=== PATIENT | female | born 1995 | race Caucasian/White ===

== ENCOUNTER 2020-06-22 23:23 | Inpatient (IN) | payer BC ==
[2020-06-22] MEDS ORDERED: ACETAMINOPHEN TAB 500 MG TAB PO STA (23:41)
[2020-06-22] MEDS ORDERED: ALBUTEROL HFA INHALER INHALATION STA (23:41)
[2020-06-22] MEDS ORDERED: SODIUM CHLORIDE 0.9% 500 ML 500 ML IV STA (23:42)
[2020-06-22] MEDS ORDERED: IBUPROFEN 800 MG TAB PO STA (23:42)
[2020-06-22] MEDS ORDERED: SODIUM CHLORIDE 0.9% 1,000 ML IV STA ×2 (23:42)
--- NOTE | 2020-06-23 | XR ---
EXAMINATION TYPE: XR chest 1V portable DATE OF EXAM: 06/22/2020 COMPARISON: NONE HISTORY: Short of breath. . TECHNIQUE: Single view FINDINGS: Heart and mediastinum are normal. There is possible small infiltrate in the right lower lob e. There is slight elevated right diaphragm. Left lung is fairly clear. There is no heart failure. Th ere are no hilar masses. Bony thorax is intact. IMPRESSION: Minimal infiltrate right lower lobe. Normal heart.
--- NOTE | 2020-06-23 00:06 | ED ---
Fever HPI - General Chief Complaint: Fever Stated Complaint: +COVID, fever, dehydrated Time Seen by Provider: 06/22/20 23:32 Source: patient, RN notes reviewed, old records reviewed Mode of arrival: ambulatory Limitations: no limitations - History of Present Illness Initial Comments: This is a 24-year-old female DF for evaluation patient Dese for evaluation regards to fever with known history of coronavirus. Patient feels significantly short of breath with diffuse body aches and pains. No significant medical history. Patient otherwise is complaining of headache. Patient is also seen is not really catch her breath denies chance of . MD Complaint: fever, weakness -: days(s) Temperature Source: subjective Context: sick contacts Associated Symptoms: chills, nausea Treatments Prior to Arrival: Acetaminophen, Ibuprofen - Related Data Home Medications Medication Instructions Recorded Confirmed Acetaminophen Tab [Tylenol] 500 mg PO Q4-6H PRN 06/24/20 06/24/20 Pnv No.95/Ferrous Fum/Folic AC 1 tab PO DAILY 06/24/20 06/24/20 [ Multivitamin Tablet] Previous Rx's Medication Instructions Recorded Zinc Sulfate [Orazinc] 220 mg PO DAILY #30 capsule 06/23/20 Albuterol Sulfate [Proair Hfa] 1 - 2 puff INHALATION Q6HR PRN #1 06/24/20 inhaler Famotidine [Pepcid] 20 mg PO BID #20 tablet 06/24/20 Allergies Allergy/AdvReac Type Severity Reaction Status Date / Time No Known Allergies Allergy Verified 06/24/20 21:20 Review of Systems ROS Statement: Those systems with pertinent positive or pertinent negative responses have been documented in the HPI. ROS Other: All systems not noted in ROS Statement are negative. Past Medical History Past Medical History: No Reported History History of Any Multi-Drug Resistant Organisms: None Reported Past Surgical History: Adenoidectomy, Tonsillectomy Past Psychological History: ADD/ADHD Smoking Status: Never smoker Past Alcohol Use History: None Reported Past Drug Use History: None Reported General Exam Limitations: no limitations General appearance: alert, in no apparent distress Head exam: Present: atraumatic, normocephalic, normal inspection Eye exam: Present: normal appearance, PERRL, EOMI. Absent: scleral icterus, conjunctival injection, periorbital swelling ENT exam: Present: normal exam, mucous membranes moist Neck exam: Present: normal inspection. Absent: tenderness, meningismus, lymphadenopathy Respiratory exam: Present: normal lung sounds bilaterally. Absent: respiratory distress, wheezes, rales, rhonchi, stridor Cardiovascular Exam: Present: regular rate, normal rhythm, normal heart sounds. Absent: systolic murmur, diastolic murmur, rubs, gallop, clicks GI/Abdominal exam: Present: soft, normal bowel sounds. Absent: distended, tenderness, guarding, rebound, rigid Extremities exam: Present: normal inspection, full ROM, normal capillary refill. Absent: tenderness, pedal edema, joint swelling, calf tenderness Back exam: Present: normal inspection Neurological exam: Present: alert, oriented X3, CN II-XII intact Psychiatric exam: Present: normal affect, normal mood Skin exam: Present: warm, dry, intact, normal color. Absent: rash Course Vital Signs 06/22/20 06/23/20 06/23/20 23:26 00:10 01:27 Temperature 99.0 F Pulse Rate 123 H 98 Pulse Rate [ 120 H [employer] ] Respiratory 22 20 18 Rate Blood Pressure 117/82 100/60 O2 Sat by Pulse 98 98 Oximetry - Reevaluation(s) Reevaluation #1: Medical record is reviewed Patient symptoms are improved here in the ER Patient informed results and questions have been answered Patient does not feel couple discharged home still feel short of breath and weak Medical Decision Making - Medical Decision Making 24 female DF for evaluation patient is positive for coronavirus. Patient does not feel well will be admitted for coronavirus and evaluation and treatment - Lab Data Result diagrams: 06/23/20 00:15 06/23/20 00:15 Lab Results 06/23/20 06/23/20 06/23/20 Range/Units 00:15 00:15 00:15 WBC 4.9 (3.8-10.6) k/uL RBC 4.02 (3.80-5.40) m/uL Hgb 12.2 (11.4-16.0) gm/dL Hct 34.2 (34.0-46.0) % MCV 85.0 (80.0-100.0) fL MCH 30.4 (25.0-35.0) pg MCHC 35.8 (31.0-37.0) g/dL RDW 12.9 (11.5-15.5) % Plt Count 161 (150-450) k/uL MPV 7.1 Neutrophils % 81 % Lymphocytes % 13 % Monocytes % 4 % Eosinophils % 0 % Basophils % 0 % Neutrophils # 3.9 (1.3-7.7) k/uL Lymphocytes # 0.6 L (1.0-4.8) k/uL Monocytes # 0.2 (0-1.0) k/uL Eosinophils # 0.0 (0-0.7) k/uL Basophils # 0.0 (0-0.2) k/uL PT 10.2 (9.0-12.0) sec INR 0.9 (<1.2) APTT 27.1 (22.0-30.0) sec D-Dimer 0.97 H (<0.60) mg/L FEU Sodium 131 L (137-145) mmol/L Potassium 3.8 (3.5-5.1) mmol/L Chloride 102 (98-107) mmol/L Carbon Dioxide 21 L (22-30) mmol/L Anion Gap 8 mmol/L BUN 8 (7-17) mg/dL Creatinine 0.46 L (0.52-1.04) mg/dL Est GFR (CKD-EPI)AfAm >90 (>60 ml/min/1.73 sqM) Est GFR (CKD-EPI)NonAf >90 (>60 ml/min/1.73 sqM) Glucose 91 (74-99) mg/dL Plasma Lactic Acid Chavo (0.7-2.0) mmol/L Calcium 8.9 (8.4-10.2) mg/dL Magnesium 1.6 (1.6-2.3) mg/dL Total Bilirubin 0.5 (0.2-1.3) mg/dL AST 70 H (14-36) U/L ALT 96 H (4-34) U/L Alkaline Phosphatase 96 (38-126) U/L Lactate Dehydrogenase 431 (313-618) U/L C-Reactive Protein 36.9 H (<10.0) mg/L Total Protein 6.0 L (6.3-8.2) g/dL Albumin 3.6 (3.5-5.0) g/dL 06/23/20 Range/Units 00:15 WBC (3.8-10.6) k/uL RBC (3.80-5.40) m/uL Hgb (11.4-16.0) gm/dL Hct (34.0-46.0) % MCV (80.0-100.0) fL MCH (25.0-35.0) pg MCHC (31.0-37.0) g/dL RDW (11.5-15.5) % Plt Count (150-450) k/uL MPV Neutrophils % % Lymphocytes % % Monocytes % % Eosinophils % % Basophils % % Neutrophils # (1.3-7.7) k/uL Lymphocytes # (1.0-4.8) k/uL Monocytes # (0-1.0) k/uL Eosinophils # (0-0.7) k/uL Basophils # (0-0.2) k/uL PT (9.0-12.0) sec INR (<1.2) APTT (22.0-30.0) sec D-Dimer (<0.60) mg/L FEU Sodium (137-145) mmol/L Potassium (3.5-5.1) mmol/L Chloride (98-107) mmol/L Carbon Dioxide (22-30) mmol/L Anion Gap mmol/L BUN (7-17) mg/dL Creatinine (0.52-1.04) mg/dL Est GFR (CKD-EPI)AfAm (>60 ml/min/1.73 sqM) Est GFR (CKD-EPI)NonAf (>60 ml/min/1.73 sqM) Glucose (74-99) mg/dL Plasma Lactic Acid Chavo 0.6 L (0.7-2.0) mmol/L Calcium (8.4-10.2) mg/dL Magnesium (1.6-2.3) mg/dL Total Bilirubin (0.2-1.3) mg/dL AST (14-36) U/L ALT (4-34) U/L Alkaline Phosphatase (38-126) U/L Lactate Dehydrogenase (313-618) U/L C-Reactive Protein (<10.0) mg/L Total Protein (6.3-8.2) g/dL Albumin (3.5-5.0) g/dL - EKG Data -: EKG Interpreted by Me (EKG shows sinus tachycardia 117 IN 150 QRS 76 QTC 438) - Radiology Data Radiology results: report reviewed (Chest x-ray does show infiltrate), image reviewed Disposition Clinical Impression: Viral infection, Fever, Coronavirus infection, Pneumonia due to COVID-19 virus Disposition: ADMITTED IP TO THIS HOSP Condition: Good Is patient prescribed a controlled substance at d/c from ED?: No
[2020-06-23 00:38] LABS: Basophils % (A) 0 %; Eosinophils % (A) 0 %; HCT 34.2 % (34.0-46.0); HGB 12.2 gm/dL (11.4-16.0); Lymphocytes # (A) 0.6 k/uL (1.0-4.8); Lymphocytes % (A) 13 %; MCH 30.4 pg (25.0-35.0); MCHC 35.8 g/dL (31.0-37.0); Mean Platelet Volume 7.1; Monocytes # (A) 0.2 k/uL (0-1.0); Monocytes % (A) 4 %; Neutrophils # (A) 3.9 k/uL (1.3-7.7); Neutrophils % (A) 81 %; Platelet Count 161 k/uL (150-450); RBC 4.02 m/uL (3.80-5.40); RDW 12.9 % (11.5-15.5); WBC 4.9 k/uL (3.8-10.6)
[2020-06-23 00:47] LABS: INR 0.9 (<1.2); Partial Thromboplastin Time 27.1 sec (22.0-30.0); Prothrombin Time 10.2 sec (9.0-12.0)
[2020-06-23 00:49] LABS: ALT 96 U/L (4-34); AST 70 U/L (14-36); African American GFR (CKD) >90 (>60 ml/min/1.73 sqM); Albumin 3.6 g/dL (3.5-5.0); Alkaline Phosphatase 96 U/L (38-126); Anion Gap 8 mmol/L; Blood Urea Nitrogen 8 mg/dL (7-17); C Reactive Protein 36.9 mg/L (<10.0); Calcium 8.9 mg/dL (8.4-10.2); Carbon Dioxide 21 mmol/L (22-30); Chloride 102 mmol/L (98-107); Glucose 91 mg/dL (74-99); LDH 431 U/L (313-618); Magnesium 1.6 mg/dL (1.6-2.3); Non-African American GFR(CKD) >90 (>60 ml/min/1.73 sqM); Potassium 3.8 mmol/L (3.5-5.1); Sodium 131 mmol/L (137-145); Total Bilirubin 0.5 mg/dL (0.2-1.3)
[2020-06-23 00:58] LABS: D-Dimer 0.97 mg/L FEU (<0.60)
[2020-06-23] MEDS ORDERED: AZITHROMYCIN 500 MG in SODIUM CHLORIDE 0.9% 250 ML IVPB STA (00:58)
[2020-06-23] MEDS ORDERED: PNEUMONIA PROTOCOL UTILIZED 1 EACH MISC PO PRN (00:58)
[2020-06-23] MEDS ORDERED: ACETAMINOPHEN TAB 500 MG TAB PO PRN (05:34)
[2020-06-23] MEDS: ALBUTEROL HFA INHALER INHALATION PRN ×2 (07:44→16:32)
--- NOTE | 2020-06-23 13:34 | P.HPIM ---
History of Present Illness Patient is a very pleasant 23-year-old woman came in with complaints of generalized body aches fever chills. Patient appears tired and weak. Patient's symptoms started on Wednesday was diagnosed with Covid. Patient is bit h yponatremic and the dry and dehydrated because of which patient was admitted given IV fluids. Patient will be discharged today. Patient is not hypoxic still having fevers. As patient is not hypoxic patient probably will not benefit from systemic steroids. Patient received IV fluids overnight. Chest x- ray showed mild infiltrate in the right lower lobe. Review of Systems REVIEW OF SYSTEMS: CONSTITUTIONAL: As mentioned in HPI HEENT: No recent visual problems or hearing problems. Denied any sore throat. CARDIOVASCULAR: No chest pain, orthopnea, PND, no palpitations, no syncope. PULMONARY: No shortness of breath, no cough, no hemoptysis. GASTROINTESTINAL: No diarrhea, no nausea, no vomiting, no abdominal pain. NEUROLOGICAL: No headaches, no weakness, no numbness. HEMATOLOGICAL: Denies any bleeding or petechiae. GENITOURINARY: Denies any burning micturition, frequency, or urgency. MUSCULOSKELETAL/RHEUMATOLOGICAL: Denies any joint pain, swelling, or any muscle pain. ENDOCRINE: Denies any polyuria or polydipsia. The rest of the 14-point review of systems is negative. Past Medical History Past Medical History: No Reported History History of Any Multi-Drug Resistant Organisms: None Reported Past Surgical History: Adenoidectomy, Tonsillectomy Past Anesthesia/Blood Transfusion Reactions: No Reported Reaction Past Psychological History: ADD/ADHD Smoking Status: Never smoker Past Alcohol Use History: None Reported Past Drug Use History: None Reported Medications and Allergies Home Medications Medication Instructions Recorded Confirmed Type Zinc Sulfate [Orazinc] 220 mg PO DAILY #30 capsule 06/23/20 Rx Allergies Allergy/AdvReac Type Severity Reaction Status Date / Time No Known Allergies Allergy Verified 06/23/20 08:26 Physical Exam Vitals: Vital Signs Temp Pulse Pulse Pulse Resp BP BP 06/23/20 12:40 100.1 F H 06/23/20 10:00 99.1 F 108 H 17 99/69 06/23/20 07:56 98.0 F 108 H 18 107/62 06/23/20 01:42 98.5 F 109 H 20 110/71 06/23/20 01:27 98 18 100/60 06/23/20 00:10 120 H 20 06/22/20 23:26 99.0 F 123 H 22 117/82 Pulse Ox 06/23/20 12:40 06/23/20 10:00 97 06/23/20 07:56 96 06/23/20 01:42 95 06/23/20 01:27 98 06/23/20 00:10 06/22/20 23:26 98 Intake and Output 06/22/20 06/23/20 06/23/20 22:59 06:59 14:59 Other: Weight 76.204 kg A PHYSICAL EXAMINATION: GENERAL: The patient is alert and oriented x3, not in any acute distress. Well developed, well nourished. HEENT: Pupils are round and equally reacting to light. EOMI. No scleral icterus. No conjunctival pallor. Normocephalic, atraumatic. No pharyngeal erythema. No thyromegaly. CARDIOVASCULAR: S1 and S2 present. No murmurs, rubs, or gallops. PULMONARY: Chest is clear to auscultation, no wheezing or crackles. ABDOMEN: Soft, nontender, nondistended, normoactive bowel sounds. No palpable organomegaly. MUSCULOSKELETAL: No joint swelling or deformity. EXTREMITIES: No cyanosis, clubbing, or pedal edema. NEUROLOGICAL: Gross neurological examination did not reveal any focal deficits. SKIN: No rashes. Results CBC & Chem 7: 06/23/20 00:15 06/23/20 00:15 Labs: Abnormal Lab Results - Last 24 Hours (Table) 06/23/20 06/23/20 06/23/20 Range/Units 00:15 00:15 00:15 Lymphocytes # 0.6 L (1.0-4.8) k/uL D-Dimer 0.97 H (<0.60) mg/L FEU Sodium 131 L (137-145) mmol/L Carbon Dioxide 21 L (22-30) mmol/L Creatinine 0.46 L (0.52-1.04) mg/dL Plasma Lactic Acid Chavo (0.7-2.0) mmol/L AST 70 H (14-36) U/L ALT 96 H (4-34) U/L C-Reactive Protein 36.9 H (<10.0) mg/L Total Protein 6.0 L (6.3-8.2) g/dL 06/23/20 Range/Units 00:15 Lymphocytes # (1.0-4.8) k/uL D-Dimer (<0.60) mg/L FEU Sodium (137-145) mmol/L Carbon Dioxide (22-30) mmol/L Creatinine (0.52-1.04) mg/dL Plasma Lactic Acid Chavo 0.6 L (0.7-2.0) mmol/L AST (14-36) U/L ALT (4-34) U/L C-Reactive Protein (<10.0) mg/L Total Protein (6.3-8.2) g/dL Thrombosis Risk Factor Assmnt - Choose All That Apply Any of the Below Risk Factors Present?: No Other Risk Factors: No Other congenital or acquired thrombophilia - If yes, enter type in comment: No Thrombosis Risk Factor Assessment Level: Very Low Risk Assessment and Plan Plan: Covid 19 infection: Patient is systemic inflammatory response secondary to this. Patient received IV fluids feeling well will be discharged today -Elevated d-dimer secondary to infection -Hypovolemic hyponatremia: This year IV fluids -Mild tachycardia secondary to fever -Mildly elevated liver enzymes secondary to Covid infection -Dehydration: Secondary to systemic inflammatory response received IV fluids. She and is not hypoxic will not require any further hospitalization will be discharged today to follow with PCP as an outpatient patient will be given a prescription for zinc will not benefit from systemic steroids.
--- NOTE | 2020-06-23 13:35 | P.DS ---
Providers Date of admission: 06/23/20 00:59 Attending physician: Maria R Meier Consults: 06/23/20 00:58 Consult Physician Routine Consulting Provider: Gelacio Maldonado Consult Reason/Comments: covid Do you want consulting provider notified?: Yes Primary care physician: Rubens Villeda [facility] Course: refer to my HPI for further details Patient Condition at Discharge: Good Plan - Discharge Summary Discharge Rx Participant: No New Discharge Prescriptions: New Zinc Sulfate [Orazinc] 220 mg PO DAILY #30 capsule Discharge Medication List Zinc Sulfate [Orazinc] 220 mg PO DAILY #30 capsule 06/23/20 [Rx] Follow up Appointment(s)/Referral(s): Rubens Villeda MD [Primary Care Provider] - 3 Days
[2020-06-23 14:30] VITALS: BP 97/61; PULSE 110; RESP 18
[2020-06-23 14:31] VITALS: TEMP 99.9
--- NOTE | 2020-06-23 16:11 | CONS ---
CONSULTATION DATE OF SERVICE: 06/23/2020 REASON FOR CONSULTATION: COVID-19 infection. HISTORY OF PRESENT ILLNESS: The patient is a 24-year-old female who started getting sick on Wednesday that is 4 days prior to presentation to the hospital. The patient's symptoms have been generalized weakness, tiredness, no energy along with body aches and fever. The patient got diagnosed with Covid the same day, did not receive any specific treatment. However, the patient presented to the ER last night with concern for not feeling well and did have a persistent fever. The patient denies having any headache. No URI symptoms. Denies having any chest pain or shortness of breath. She did have very minimal dry cough. No sputum production. No nausea, no vomiting. No abdominal pain or diarrhea. The patient mentioned she still has denies having any burning or frequency of urine and still has her sense of taste and smell intact. The patient was evaluated by the ER physician. On arrival to the ER the patient was afebrile to a low- grade fever of 99. Subsequently did spike a fever of 101.6 this afternoon. She is mildly tachycardic, however, saturating 96-97 percent on room air. The patient apparently noted to be slightly dehydrated, has received fluid and the patient has already been discharged by the admitting physician. Infectious Disease was consulted. REVIEW OF SYSTEMS: Positive points have been mentioned in HPI. Rest of systems are negative. PAST MEDICAL HISTORY: No major illnesses. PAST SURGICAL HISTORY: Adenoidectomy, tonsillectomy. SOCIAL HISTORY: No history of smoking, drinking or drug use. FAMILY HISTORY: No pertinent findings noticed. ALLERGIES: No known drug allergies. MEDICATIONS: The patient is currently on Tylenol, Ventolin inhaler. She received fluid, which has been discontinued by the admitting physician. PHYSICAL EXAMINATION: Her blood pressure is 197/61, pulse of 110, temperature 99.9. She is 93% on room air. General description: The patient is a young female lying in bed in no distress. No tachypnea or accessory muscles of respiration use. HEENT: Examination shows no pallor or scleral icterus. Oral mucous membranes dry. No pharyngeal erythema. NECK: Trachea central. No thyromegaly. LUNGS: Unlabored breathing. Clear to auscultation with no wheeze or crackles. HEART: S1, S2. Regular rate and rhythm. ABDOMEN: Soft, no tenderness. No guarding or rigidity. EXTREMITIES: No edema of the feet. SKIN examination: No rash or mass palpable. NEUROLOGICALLY: The patient is awake, alert, oriented times three. Mood and affect normal. LABS: Hemoglobin is 12.2, white count 4.9 with mild lymphopenia. D-dimer was 0.97, BUN of 8, creatinine 0.46. Liver enzymes mildly elevated. LDL was normal. CRP is 36.9. Procalcitonin was not done. Chest x-ray with mild right lower lobe infiltrate. DIAGNOSTIC IMPRESSION AND PLAN: Patient with Covid-19 infection, mild illness as the patient is currently not hypoxic, saturating 96 to 97% on room air and no significant respiratory symptoms, shortness of breath or cough in this patient who is currently 18 weeks . Treatment will be mostly supportive with steroids have not shown any definite benefit in patients not requiring any supplemental oxygen and currently no other obvious focus of this fever in this patient. Abdominal soft on clinical examination. No urinary symptoms. No evidence of any cellulitis. PLAN: 1. Treatment is mostly supportive for her Covid 19 infection and may benefit from zinc and multivitamin. Tylenol for the fever. 2. The patient advised if any worsening respiratory symptoms, to come back to the hospital right away as the patient has already been discharged by the admitting team. LISETTE / DOMITILA: [id number] /
[2020-06-24] MEDS ORDERED: AZITHROMYCIN 500 MG TAB PO SCH (01:00)
== END 2020-06-23 16:42 | disposition home or self-care (01) | DRG 831 ==
LOC: EC 23:23 → 4SSUR 06-23 00:59
PROVIDERS: ADMIT Hospitalist; ATTEND Hospitalist
DX: O98.512 Other viral diseases complicating pregnancy, second trimester (principal); U07.1 COVID-19; J12.82 Pneumonia due to coronavirus disease 2019; E87.1 Hypo-osmolality and hyponatremia; E86.0 Dehydration; E86.1 Hypovolemia; F90.9 Attention-deficit hyperactivity disorder, unspecified type; Z98.890 Other specified postprocedural states; R00.0 Tachycardia, unspecified; D72.810 Lymphocytopenia; Z3A.18 18 weeks gestation of pregnancy
CPT/HCPCS: 36415; 71045; 80053; 83605; 83615; 83735; 85025; 85379; 85610; 85730; 86140; 87040; 93005; 94640; 96360; 99285

== ENCOUNTER 2020-06-24 19:19 | Emergency (ER) | payer BC ==
[2020-06-24 19:36] VITALS: RESP 20
[2020-06-24] MEDS ORDERED: SODIUM CHLORIDE 0.9% 1,000 ML IV STA ×2 (19:48)
[2020-06-24 20:02] LABS: Basophils % (A) 0 %; Eosinophils % (A) 1 %; HGB 11.5 gm/dL (11.4-16.0); Lymphocytes # (A) 0.7 k/uL (1.0-4.8); Lymphocytes % (A) 16 %; MCH 29.8 pg (25.0-35.0); MCV 85.1 fL (80.0-100.0); Monocytes # (A) 0.1 k/uL (0-1.0); Monocytes % (A) 3 %; Neutrophils # (A) 3.6 k/uL (1.3-7.7); Neutrophils % (A) 79 %; Platelet Count 150 k/uL (150-450); RBC 3.88 m/uL (3.80-5.40); RDW 12.9 % (11.5-15.5); WBC 4.5 k/uL (3.8-10.6)
[2020-06-24 20:09] LABS: Appearance,Urine Clear (Clear); Bilirubin,Urine Negative (Negative); Blood,Urine Negative (Negative); Color,Urine Light Yellow; Glucose,Urine (UA) Negative (Negative); Ketones,Urine 1+ (Negative); Leukocyte Esterase,Urine Negative (Negative); Nitrite,Urine Negative (Negative); Protein,Urine Negative (Negative); Specific Gravity,Urine 1.008 (1.001-1.035); Urobilinogen,Urine <2.0 mg/dL (<2.0)
[2020-06-24 20:18] LABS: ALT 86 U/L (4-34); AST 72 U/L (14-36); African American GFR (CKD) >90 (>60 ml/min/1.73 sqM); Albumin 3.3 g/dL (3.5-5.0); Alkaline Phosphatase 105 U/L (38-126); Anion Gap 6 mmol/L; Blood Urea Nitrogen 8 mg/dL (7-17); Calcium 8.9 mg/dL (8.4-10.2); Carbon Dioxide 22 mmol/L (22-30); Chloride 104 mmol/L (98-107); Glucose 90 mg/dL (74-99); Lipase 39 U/L (23-300); Non-African American GFR(CKD) >90 (>60 ml/min/1.73 sqM); Potassium 3.9 mmol/L (3.5-5.1); Sodium 132 mmol/L (137-145); Total Bilirubin 0.5 mg/dL (0.2-1.3); Total Protein 5.7 g/dL (6.3-8.2)
--- NOTE | 2020-06-24 21:21 | US ---
EXAMINATION TYPE: US OB >= 14 wk fetus DATE OF EXAM: 06/24/2020 COMPARISON: None CLINICAL HISTORY: abd pain with 18 week Abdominal pain x 1 day. . Hx . TECHNIQUE: Transvaginal (TV) and Transabdominal (TA) GESTATIONAL AGE / DATING Physician Established: (18 weeks/4 days) EDC: 11/21/2020 Dates by LMP: 02/17/2020 (18 weeks/2 days) EDC: 11/23/2020 Dates by First Scan: This is first scan Dates by Current Scan: (18 weeks/4 days) EDC: 11/21/2020 SURVEY IUP: Single PLACENTA: Posterior. PREVIA: Appears to be low lying. Difficult to see where placenta ends in relationship to the cervix transabdominally. On transvaginal exam, placenta appears to be 0.98 cm from cervix. WINTER: 13.76 cm Normal CERVICAL LENGTH (transabdominal: norm > 3.0cm): 3.9 cm CERVICAL LENGTH (transvaginal: norm> 2.5cm): 4.5 cm. cm (Supplemental transvaginal imaging performed to verify cervical length.) BIOMETRY PRESENTATION: Vertex BPD: 4.14 cm 18 weeks / 4 days HC: 15.71 cm 18 weeks / 4 days AC: 13.02 cm 18 weeks / 4 days FL: 2.75 cm 18 weeks / 3 days ESTIMATED WEIGHT IN GRAMS: 242.9 grams ESTIMATED WEIGHT IN LBS/OZ: 0 lbs. 9 oz. WEIGHT PERCENTAGE BASED ON ESTABLISHED DATES: 40.8% HC/AC: 1.21 Normal FL/AC: 21.14 HEART RATE: 166 bpm RHYTHM: Normal IMPRESSION: The ultrasound gestational age is 18 weeks and 3 days. The ADELSO is 11/22/2020. No complicating process seen.
--- NOTE | 2020-06-24 21:24 | US ---
EXAMINATION TYPE: US OB TV Cervical Measurement DATE OF EXAM: 06/24/2020 COMPARISON: NONE REASON FOR EXAM: Per Ordering Physician?this transvaginal scan is to assess the CERVICAL LENGTH for i ncompetence or funneling. GESTATIONAL AGE / DATING Physician Established: (18 weeks/4 days) EDC: 11/21/2020 MATERNAL/ SURVEY CERVICAL LENGTH (transvaginal: norm> 2.5cm): 4.5 cm Ultrasound evidence of shortened cervix? No Ultrasound evidence of funneling? No PRESENTATION: Vertex HEART RATE: 166 bpm RHYTHM: Normal IMPRESSION: The cervix measures 4.5 cm and is closed.
--- NOTE | 2020-06-24 21:52 | ED ---
General Adult HPI - General Chief complaint: Shortness of Breath Stated complaint: Chest pain Time Seen by Provider: 06/24/20 19:40 Source: patient Mode of arrival: ambulatory Limitations: no limitations - History of Present Illness Initial comments: This 24-year-old female presents with a complaint of being diagnosed with "at approximately one week ago. She was hospitalized recently for and discharged one day ago. She has had occasional shortness of breath as well as fairly persistent fevers. She also had a chest x-ray done and was diagnosed with coving pneumonia. She states that since being discharged yesterday she developed some mild diffuse abdominal cramping. She also had some slight chest pressure which seems to be worse with inspiration. She is worried about the possibility of reflux. She states that her temperature was approximately 101.5. She tried some Tylenol for this as well. She is approximately 18 weeks currently. She denies any significant nasal congestion. There has been no loss of taste or smell. There is no leg pain or swelling. No history of DVT or PE. No other complaints or modifying factors. - Related Data Home Medications Medication Instructions Recorded Confirmed Acetaminophen Tab [Tylenol] 500 mg PO Q4-6H PRN 06/24/20 06/24/20 Pnv No.95/Ferrous Fum/Folic AC 1 tab PO DAILY 06/24/20 06/24/20 [ Multivitamin Tablet] Previous Rx's Medication Instructions Recorded Zinc Sulfate [Orazinc] 220 mg PO DAILY #30 capsule 06/23/20 Albuterol Sulfate [Proair Hfa] 1 - 2 puff INHALATION Q6HR PRN #1 06/24/20 inhaler Famotidine [Pepcid] 20 mg PO BID #20 tablet 06/24/20 Allergies Allergy/AdvReac Type Severity Reaction Status Date / Time No Known Allergies Allergy Verified 06/24/20 21:20 Review of Systems ROS Statement: Those systems with pertinent positive or pertinent negative responses have been documented in the HPI. ROS Other: All systems not noted in ROS Statement are negative. Past Medical History Past Medical History: No Reported History History of Any Multi-Drug Resistant Organisms: None Reported Past Surgical History: Adenoidectomy, Tonsillectomy Past Anesthesia/Blood Transfusion Reactions: No Reported Reaction Past Psychological History: ADD/ADHD Smoking Status: Never smoker Past Alcohol Use History: None Reported Past Drug Use History: None Reported General Exam - General Exam Comments Initial Comments: GENERAL: The patient is well nourished and well hydrated. VITAL SIGNS: Heart rate, blood pressure, respiratory rate reviewed as recorded in nurse's notes. EYES: Pupils are round and reactive. Extraocular movements are intact. No conjunctival / lid redness or swelling. ENT: No external evidence of injury, swelling, or ecchymosis. Airway is patent. Throat is clear. NECK: Nontender. No swelling or evidence of injury. No subcutaneous emphysema. Trachea is midline. No thyroid mass. HEART: Regular rate and rhythm. Good peripheral pulses. LUNGS/CHEST: Breath sounds clear and equal bilaterally. No rales, rhonchi, or wheezes. No ecchymosis, subcutaneous emphysema, or tenderness. ABDOMEN: There is mild diffuse abdominal tenderness. No palpable masses or organomegaly. No peritoneal signs. No abdominal wall swelling or ecchymosis. EXTREMITIES: No extremity tenderness. Normal muscle tone and function. No thoracolumbar tenderness. NEUROLOGIC: Sensation is grossly intact. Cranial nerve exam reveals face is symmetrical, tongue is midline, speech is clear. SKIN: No abrasions or ecchymosis is noted. No induration or masses noted. PSYCHIATRIC: Alert and oriented. Appropriate behavior and judgment. Limitations: no limitations Course Vital Signs 06/24/20 06/24/20 19:33 20:55 Temperature 98.8 F 99.7 F H Pulse Rate 114 H 104 H Respiratory 20 20 Rate Blood Pressure 111/70 109/76 O2 Sat by Pulse 98 100 Oximetry Medical Decision Making - Medical Decision Making The patient was seen and examined. All diagnostics are reviewed. The IV is established patient is hydrated. Her EKG shows a sinus tachycardia at a rate of 106. There is no acute ST-T wave changes identified. The NC intervals 148, QRS duration is 70, and the QTC intervals 438. The old records are reviewed showing a previously noted infiltrate on chest x-ray. This is not repeated as patient just had an x-ray of couple days ago and is currently . A pelvic ultrasound was done which shows show a 18 week 3 day intrauterine. heart rate is 166. No abnormalities or complications are noted at this point. The laboratory shows a mild transaminitis consistent with previous labs. Her pulse ox level has remained quite stable. She appears quite well clinically. It is felt as though she certainly does have the COVID and is dealing with some of the sequelae thereof. No acute abdominal abnormalities are noted. It appears that her oxygenation is doing quite well. It is felt as though she is stable for discharge with close follow-up with her doctors. She will be tried on some Pepcid in case she does have a degree of reflux. This chest pain certainly also be related to a degree of the Covid pneumonia. The patient will also be prescribed an inhaler. She is instructed to continue with Tylenol as needed for pain and fever. Return parameters are discussed. - Lab Data Result diagrams: 06/24/20 19:59 06/24/20 19:59 Lab Results 06/24/20 06/24/20 06/24/20 Range/Units 19:59 19:59 20:02 WBC 4.5 (3.8-10.6) k/uL RBC 3.88 (3.80-5.40) m/uL Hgb 11.5 (11.4-16.0) gm/dL Hct 33.0 L (34.0-46.0) % MCV 85.1 (80.0-100.0) fL MCH 29.8 (25.0-35.0) pg MCHC 35.0 (31.0-37.0) g/dL RDW 12.9 (11.5-15.5) % Plt Count 150 (150-450) k/uL MPV 7.0 Neutrophils % 79 % Lymphocytes % 16 % Monocytes % 3 % Eosinophils % 1 % Basophils % 0 % Neutrophils # 3.6 (1.3-7.7) k/uL Lymphocytes # 0.7 L (1.0-4.8) k/uL Monocytes # 0.1 (0-1.0) k/uL Eosinophils # 0.0 (0-0.7) k/uL Basophils # 0.0 (0-0.2) k/uL Sodium 132 L (137-145) mmol/L Potassium 3.9 (3.5-5.1) mmol/L Chloride 104 (98-107) mmol/L Carbon Dioxide 22 (22-30) mmol/L Anion Gap 6 mmol/L BUN 8 (7-17) mg/dL Creatinine 0.40 L (0.52-1.04) mg/dL Est GFR (CKD-EPI)AfAm >90 (>60 ml/min/1.73 sqM) Est GFR (CKD-EPI)NonAf >90 (>60 ml/min/1.73 sqM) Glucose 90 (74-99) mg/dL Calcium 8.9 (8.4-10.2) mg/dL Total Bilirubin 0.5 (0.2-1.3) mg/dL AST 72 H (14-36) U/L ALT 86 H (4-34) U/L Alkaline Phosphatase 105 (38-126) U/L Total Protein 5.7 L (6.3-8.2) g/dL Albumin 3.3 L (3.5-5.0) g/dL Lipase 39 (23-300) U/L Urine Color Light Yellow Urine Appearance Clear (Clear) Urine pH 7.0 (5.0-8.0) Ur Specific [place] 1.008 (1.001-1.035) Urine Protein Negative (Negative) Urine Glucose (UA) Negative (Negative) Urine Ketones 1+ H (Negative) Urine Blood Negative (Negative) Urine Nitrite Negative (Negative) Urine Bilirubin Negative (Negative) Urine Urobilinogen <2.0 (<2.0) mg/dL Ur Leukocyte Esterase Negative (Negative) Disposition Clinical Impression: Chest pain, Abdominal pain, Pneumonia due to COVID-19 virus, GERD (gastroesophageal reflux disease), Disposition: HOME SELF-CARE Condition: Good Instructions (If sedation given, give patient instructions): Abdominal Pain in (ED), Coronavirus Disease 2019 (COVID-19), Gastroesophageal Reflux Disease (ED) Prescriptions: Famotidine [Pepcid] 20 mg PO BID #20 tablet Albuterol Sulfate [Proair Hfa] 1 - 2 puff INHALATION Q6HR PRN #1 inhaler PRN Reason: Shortness Of Breath Or Wheezing Is patient prescribed a controlled substance at d/c from ED?: No Referrals: Rubens Villeda MD [Primary Care Provider] - 1-2 days Time of Disposition: 21:53
[2020-06-24 22:13] VITALS: BP 110/73; PULSE 103; TEMP 99.4
== END 2020-06-24 22:00 | disposition home or self-care (01) ==
LOC: EC 19:19
DX: O98.512 Other viral diseases complicating pregnancy, second trimester (principal); O99.512 Diseases of the respiratory system complicating pregnancy, second trimester; O99.612 Diseases of the digestive system complicating pregnancy, second trimester; O99.891 Other specified diseases and conditions complicating pregnancy; U07.1 COVID-19; J12.82 Pneumonia due to coronavirus disease 2019; K21.9 Gastro-esophageal reflux disease without esophagitis; Z3A.18 18 weeks gestation of pregnancy
CPT/HCPCS: 36415; 76805; 76817; 80053; 81003; 83690; 85025; 93005; 96360; 99285

== ENCOUNTER 2020-10-10 10:43 | Outpatient (CLI) | payer OTHER, BC ==
[2020-10-10] MEDS: LACTATED RINGERS 1,000 ML IV ONE ×2 (11:20→11:37)
[2020-10-10 11:44] LABS: Glucose,Whole Blood 87 mg/dL (75-99)
[2020-10-10 11:57] LABS: Appearance,Urine Clear (Clear); Bilirubin,Urine Negative (Negative); Blood,Urine Negative (Negative); Color,Urine Light Yellow; Glucose,Urine (UA) Negative (Negative); Ketones,Urine Negative (Negative); Leukocyte Esterase,Urine Negative (Negative); Nitrite,Urine Negative (Negative); Protein,Urine Negative (Negative); Specific Gravity,Urine 1.007 (1.001-1.035); Urobilinogen,Urine <2.0 mg/dL (<2.0)
[2020-10-10 12:51] VITALS: BP 128/77; PULSE 96; RESP 22; TEMP 97.9
--- NOTE | 2020-10-15 09:49 | P.MSEPDOC ---
Presenting Problems - Arrival Data Date of Arrival on Unit: 10/10/20 Time of Arrival on Unit: 10:43 Mode of Transport: Ambulatory - Complaint OB-Reason for Admission/Chief Complaint: Possible Onset of Labor, Dizziness Medical History - Information : 2 Para: 0 Term: 0 : 0 Abortions: Spontaneous or Elective: 1 Number of Living Children: 0 - Gestational Age Gestational Age by ADELSO (wks/days): 33 Weeks and 6 Days - History Comment: low lying placenta, scheduled Review of Systems - Review of Systems Constitutional: No problems Breast: No problems ENT: No problems Cardiovascular: No problems Respiratory: No problems Gastrointestinal: No problems Genitourinary: No problems Musculoskeletal: No problems Neurological: Dizziness Skin: No problems Vital Signs - Temperature Temperature: 97.9 F Temperature Source: Temporal Artery Scan - Pulse Right Brachial Pulse Rate: 96 Pulse Assessment Method: Automatic Cuff - Respirations Respiratory Rate: 22 Oxygen Delivery Method: Room Air O2 Sat by Pulse Oximetry: 99 - Blood Pressure Right Arm Sitting Blood Pressure: 128/77 Blood Pressure Mean: 94 Blood Pressure Source: Automatic Cuff Medical Screen Scoring - Cervical Exam Dilation (cm): 0 Effacement (%): 0 Station: -3 Membranes: Intact - Uterine Contractions Frequency From (mins): 1 Frequency To (mins): 2 Duration From (seconds): 30 Duration To (seconds): 40 Intensity: Mild Resting: Soft to palpation - Assessment - Baby A Baseline FHR: 155 Heart Rate - NICHD Category: Category I (Normal) NST: Reactive Physician Notification - Physician Notified Physician Notified Date: 10/10/20 Physician Notified Time: 11:09 Physician: Kelly Redd New Order Received: Yes - Notification Comment Comment: Hydrate with 2L LR, send UA, continue to monitor. Fhr came down to 155 bpm after hydration Maternal Triage Index - Maternal Triage Index Presenting for scheduled procedure w/no complaint: No - Stat/Priority 1 Stat Priority 1: No - Urgent/Priority 2 Urgent Priority 2: Yes Provider Notified: Kelly Redd Provider Notified Time: 11:09 Criteria Met for Priority 2: fhr >160bpm more than 60 sec Disposition - Disposition OB Disposition: Triage, Discharge to home, Written follow up instructions reviewed Discharge Date: 10/10/20 Discharge Time: 12:20 I agree with the RN Medical Screening Exam: Yes Case reviewed; plan agreed upon as documented in EMR&OBIX.: Yes Comments: Patient was neither seen nor examined by me. Diagnosis: FALSE LABOR BEFORE 37 COMPLETED WEEKS OF GEST, THIRD TRI
== END 2020-10-10 12:22 | disposition home or self-care (01) ==
LOC: FBPOP 10:43
PROVIDERS: ATTEND Obstetrics & Gynecology
DX: O47.03 False labor before 37 completed weeks of gestation, third trimester (principal); Z3A.33 33 weeks gestation of pregnancy
CPT/HCPCS: 59025; 81003; 99214

== ENCOUNTER 2020-11-22 13:17 | Inpatient (IN) | payer OTHER, BC ==
[2020-11-26] MEDS: miSOPROStoL 25 MCG TAB PO PRN ×3 (16:10→22:47)
--- NOTE | 2020-11-26 16:11 | P.HPOB ---
History of Present Illness H&P Date: 11/26/20 This is a 24-year-old white female 2 para 0010 EDC 11/22/2020 who is presenting tonight at 40-4/7 weeks' gestation for induction of labor. has been essentially unremarkable. She is having mild irregular uterine contractions spontaneously. She denies fluid leakage or vaginal bleeding. Past medical history is significant for condylomata acuminata. Past surgical history voluntary termination of 2013, wisdom teeth extracted, adenoidectomy and tonsillectomy 2010. Current medications vitamins daily. ALLERGIES none known. Family history significant for suicide, patient's father in his 30s. 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 Obstetric history blood type is O+, rubella status immune. VDRL testing, urine culture, hepatitis B surface antigen, HIV testing, gonorrhea and chlamydia cultures all negative. Group B strep cultures negative. One-hour Glucola 73. On exam patient is 5 foot 5 inches, 195 pounds, blood pressure 128/78, vital signs are stable and she is afebrile. General physical exam is within normal limits. Cervix is 1 cm dilated, 60% effaced, -2 station, vertex presentation, posterior, soft. Cytotec 25 MCG's is placed in the posterior buccal fold for a bsorption through the salivary tissues. heart rate is in the 140s with frequent accelerations, reactive NST. Mild spontaneous contractions are occurring approximately every 10 minutes apart as graphing on the toco monitor. Impression: 40-4/7 weeks intrauterine , unfavorable cervix, here for Cytotec induction with oxytocin tomorrow morning. All signs reassuring. Plan: Close maternal and surveillance. Clear liquids can be given 30 minutes after the buckle dose. Nothing by mouth after midnight. Oxytocin at 0600 hrs. Patient is aware of the potential changes regarding the Cytotec. All questions answered. Review of Systems Constitutional: Reports as per HPI Past Medical History Past Medical History: No Reported History History of Any Multi-Drug Resistant Organisms: None Reported Past Surgical History: Adenoidectomy, Tonsillectomy Past Anesthesia/Blood Transfusion Reactions: No Reported Reaction Past Psychological History: ADD/ADHD Smoking Status: Never smoker Past Alcohol Use History: None Reported Past Drug Use History: None Reported - Past Family History Mother Family Medical History: No Reported History Medications and Allergies Home Medications Medication Instructions Recorded Confirmed Type Pnv No.95/Ferrous Fum/Folic AC 1 tab PO DAILY 06/24/20 11/26/20 History [ Multivitamin Tablet] Allergies Allergy/AdvReac Type Severity Reaction Status Date / Time No Known Allergies Allergy Verified 11/25/20 02:39 Exam Vital Signs Temp Pulse Resp BP 11/26/20 15:16 97.9 F 108 H 16 128/78 Intake and Output 11/26/20 11/26/20 11/26/20 06:59 14:59 22:59 Other: Weight 88.451 kg See dictation under HPI please Assessment and Plan Assessment: 40-4/7 weeks intrauterine , here for Cytotec induction for unfavorable primiparous cervix. All signs reassuring. Plan: Cytotec 25 MCG's every 3 hours. Risks and benefits discussed in detail. Close maternal and surveillance. Nothing by mouth after midnight. Oxytocin 0600 hrs., pending progress. Time with Patient: Less than 30
[2020-11-26] MEDS ORDERED: BUTORPHANOL 1 MG/ML 1 ML VIAL IV PRN (19:37)
[2020-11-26] MEDS ORDERED: ZOLPIDEM 10 MG TAB PO PRN (20:32)
[2020-11-26] MEDS ORDERED: ZOLPIDEM 5 MG TAB PO PRN (22:31)
[2020-11-27] MEDS: LACTATED RINGERS 1,000 ML IV SCH ×3 (06:05→21:30)
[2020-11-27] MEDS ORDERED: TERBUTALINE 1 MG/ML VIAL SQ PRN (06:14)
[2020-11-27] MEDS ORDERED: CARBOPROST TROMETHAMINE 250 MCG/ML 1 ML AMP IM PRN (06:14)
[2020-11-27] MEDS ORDERED: METHYLERGONOVINE 0.2 MG/ML 1 ML AMP IM PRN (06:14)
[2020-11-27] MEDS ORDERED: LIDOCAINE 0.5% (PF) 5 MG/ML (50 ML SDV) SQ PRN (06:14)
[2020-11-27] MEDS ORDERED: OXYTOCIN 10 UNIT/ML 1 ML VIAL IM PRN (06:14)
[2020-11-27] MEDS ORDERED: OXYTOCIN 30 UNITS/500 ML NS 30 UNIT in SALINE 1 500ML.BAG IV SCH (06:15)
[2020-11-27 06:57] LABS: Basophils % (A) 0 %; Eosinophils # (A) 0.1 k/uL (0-0.7); Eosinophils % (A) 1 %; HCT 32.1 % (34.0-46.0); HGB 10.9 gm/dL (11.4-16.0); Lymphocytes # (A) 1.7 k/uL (1.0-4.8); Lymphocytes % (A) 15 %; MCH 27.8 pg (25.0-35.0); MCV 81.9 fL (80.0-100.0); Mean Platelet Volume 8.4; Monocytes # (A) 0.5 k/uL (0-1.0); Monocytes % (A) 4 %; Neutrophils # (A) 8.5 k/uL (1.3-7.7); Neutrophils % (A) 78 %; Platelet Count 257 k/uL (150-450); Poikilocytosis Slight; RBC 3.91 m/uL (3.80-5.40); RDW 14.6 % (11.5-15.5)
[2020-11-27] MEDS ORDERED: ROPIVACAINE 5MG/ML 20ML VIAL ONE (11:41)
[2020-11-27] MEDS ORDERED: SODIUM CHLORIDE 0.9% 100 ML BAG ONE (11:41)
[2020-11-27] MEDS ORDERED: fentaNYL (PF) 50 MCG/ML 5 ML AMP ONE (11:41)
[2020-11-27] MEDS ORDERED: CITRIC ACID-SODIUM CITRATE 15 ML CUP PO ONE (17:55)
[2020-11-27] MEDS ORDERED: DEXAMETHASONE SOD PHOSPHATE 4 MG/ML 1 ML VIAL ONE (17:58)
[2020-11-27] MEDS ORDERED: OXYTOCIN 30 UNITS/500 ML NS BAG IV ONE (17:58)
[2020-11-27] MEDS ORDERED: LIDOCAINE 2% SYG (PF) 100 MG/5 ML ONE (17:58)
[2020-11-27] MEDS ORDERED: KETOROLAC 15 MG/ML 1 ML VIAL ONE (17:58)
[2020-11-27] MEDS ORDERED: MORPHINE SULFATE (PF) 0.3 MG/0.3 ML SYR ONE (17:58)
[2020-11-27] MEDS ORDERED: METOCLOPRAMIDE 5 MG/ML 2 ML VIAL IVP PRN (18:55)
[2020-11-27] MEDS ORDERED: diphenhydrAMINE 25 MG CAP PO PRN (18:55)
[2020-11-27] MEDS ORDERED: diphenhydrAMINE 50 MG/ML 1 ML VIAL IVP PRN ×2 (18:55)
[2020-11-27] MEDS ORDERED: ONDANSETRON 4 MG/2 ML VIAL IVP PRN (18:55)
[2020-11-27] MEDS ORDERED: SIMETHICONE 80 MG CHEWABLE PO PRN (18:55)
[2020-11-27] MEDS ORDERED: NALOXONE 0.4 MG/ML 1 ML VIAL IV PRN (18:55)
[2020-11-27] MEDS ORDERED: ZOLPIDEM 5 MG TAB PO PRN (18:55)
[2020-11-27] MEDS ORDERED: diphenhydrAMINE 50 MG CAP PO PRN (18:55)
--- NOTE | 2020-11-27 18:55 | P.OP ---
Date of Procedure: 11/27/20 Preoperative Diagnosis: I sevenths weeks intrauterine , arrest of dilatation and descent Postoperative Diagnosis: Left occiput transverse position, nuchal cord 1 Procedure(s) Performed: Primary low transverse section Anesthesia: epidural Surgeon: Kelly Redd Contamination Consultant #1: Radha Cash Estimated Blood Loss (ml): 580 IV fluids (ml): 1,200 Urine output (ml): 100 Pathology: none sent Condition: stable Disposition: PACU Operative Findings: Liveborn male , left occiput transverse position, nuchal cord 1. Normal- appearing tubes and ovaries. No uterine anomalies. Description of Procedure: Patient was brought in last night for Cytotec induction and received 25 MCG's buccally 3. This morning artificial amniorrhexis occurred, clear fluid. Patient progressed through labor through the entire day, arrest in dilation at 4 cm, 80%, -2 station, posterior. Decision was made to proceed with any low transverse section. In a Vioxx are given. Patient is brought to the operating room. The appropriate timeout is performed to assure proper patient and procedural identification. Vaginal prep had been performed, Bicitra given, Colin to direct drainage. Abdomen is prepped and draped in usual sterile fashion. Analgesia is checked and noted to be adequate. A low transverse skin incision is made, carried down through the subcutaneous tissue to the fascia. Subcu tissue is 3 cm deep. Fascia is isolated, scored, extended bilaterally with curved Hooks scissors. Peritoneum is next identified and incised, there is no bowel or bladder inv olvement. Bladder blade is placed over the dome of the bladder, bladder flap is created with Metzenbaum scissors and at all times the bladder is Well from the operative field to avoid injury. A low transverse uterine incision is made in this is extended bluntly bilaterally. Infant's head is delivered in the left occiput transverse position. There is a nuchal cord 1 was reduced. The patient is officially delivered of a liveborn male infant at 1818 hrs. Umbilical cord is doubly clamped and ligated, he is handed to waiting nurses for evaluation where scores of 9 and 10 at one and 5 minutes respectively are given. weighs 8 lbs. 7 oz. or 3820 g. The placentas delivered manually, it is inspected and noted to be intact with trivascular cord at 1819 hrs. At this time the uterus is externalized. It is wiped clean with a sterile sponge to avoid any retained products of conception. Edges of the uterine incision are grasped with Simmons clamps. Uterus is closed two-step fashion, first layer running locking, second layer imbricated, both with 0 Vicryl suture. Reapproximation and hemostasis is excellent. Bilateral tubes and ovaries appear normal to inspection. Abdomen is suctioned with suction on guard posterior to the uterus. Gently placed back into the abdominal cavity. Bilateral gutters are inspected and cleaned. Peritoneum is allowed to close by secondary intention, as well as the bladder flap. Colin catheter is noted to be containing clear urine in the tube. Fascia is closed in a running locking stitch of 0 Vicryl with over ligation in the midline. Subcutaneous tissue is irrigated, clean and dry. It is reapproximated with 3-0 Vicryl in a running fashion. 4-0 undyed Monocryl is used for final skin closure in a subcuticular fashion. Steri-Strips and Mastisol are applied to the wound. The incision is dressed. All sponge needle and enhancement counts are correct. Patient and her family are allowed to begin the bonding experience in the LDR. Patient is requesting circumcision for her infant son.
[2020-11-27] MEDS: SENNOSIDES-DOCUSATE SODIUM 1 EACH TAB PO SCH (20:01)
[2020-11-27 21:20] VITALS: RESP 16
[2020-11-28] MEDS: IBUPROFEN 600 MG TAB PO SCH ×4 (00:45→23:49)
[2020-11-28] MEDS: ACETAMINOPHEN TAB 500 MG TAB PO SCH ×3 (03:05→21:38)
--- NOTE | 2020-11-28 05:47 | P.PN ---
Progress Note - Text Progress Note Date: 11/28/20 Postoperative day 1 status post section under epidural anesthesia, and epidural morphine given for postoperative analgesia, patient doing well, there is no anesthesia related complications Patient had no headache, vital signs stable Assessment and plan = postop day 1 status post , doing well there is no anesthesia related complication
[2020-11-28 07:26] LABS: Basophils % (A) 0 %; Eosinophils % (A) 0 %; HCT 29.2 % (34.0-46.0); Hypochromasia Slight; Lymphocytes # (A) 1.4 k/uL (1.0-4.8); Lymphocytes % (A) 9 %; MCHC 32.3 g/dL (31.0-37.0); MCV 83.4 fL (80.0-100.0); Mean Platelet Volume 9.1; Monocytes # (A) 0.8 k/uL (0-1.0); Monocytes % (A) 5 %; Neutrophils % (A) 83 %; Platelet Count 256 k/uL (150-450); Poikilocytosis Slight; RDW 14.7 % (11.5-15.5); WBC 15.7 k/uL (3.8-10.6)
[2020-11-28 07:33] LABS: HGB 9.4 gm/dL (11.4-16.0)
--- NOTE | 2020-11-28 08:10 | P.PN ---
Subjective Progress Note Date: 11/28/20 Principal diagnosis: Postoperative day #1 Slept well. Voiding spontaneously. No complaints or issues. Objective - Vital Signs Vital signs: Vital Signs Temp 98.7 F 11/28/20 04:00 Pulse 71 11/28/20 04:00 Resp 16 11/28/20 04:00 BP 113/71 11/28/20 04:00 Pulse Ox 96 11/28/20 04:00 Intake & Output 11/27/20 11/28/20 11/28/20 18:59 06:59 18:59 Intake Total 12.833 Output Total 350 1800 Balance -350 -7157.167 Intake: Intake, IV Titration 12.833 Amount Oxytocin 30 Units/500 ml 12.833 Ns 30 unit In Saline 1 500ml.bag @ Per Protocol IV .Q0M [facility] Rx#:[id number] Output: Urine 350 1800 Straight 150 Uretheral (Colin) 450 - Constitutional General appearance: Present: average body habitus, cooperative - EENT Eyes: Present: PERRLA ENT: Present: hearing grossly normal - Respiratory Respiratory: bilateral: CTA - Cardiovascular Rhythm: regular - Gastrointestinal Gastrointestinal Comment(s): Incision clean and dry, intact, Steri-Strips applied. Fundus firm, midline, symmetric, 18 week size. General gastrointestinal: Present: normal bowel sounds - Neurologic Neurologic: Present: CNII-XII intact - Musculoskeletal Musculoskeletal: Present: gait normal, strength equal bilaterally - Labs CBC & Chem 7: 11/28/20 07:05 Labs: Abnormal Lab Results - Last 24 Hours (Table) 11/28/20 Range/Units 07:05 WBC 15.7 H (3.8-10.6) k/uL RBC 3.50 L (3.80-5.40) m/uL Hgb 9.4 L D (11.4-16.0) gm/dL Hct 29.2 L (34.0-46.0) % Neutrophils # 13.0 H (1.3-7.7) k/uL Assessment and Plan Assessment: Doing well postoperative day #1. Plan: Ferrous sulfate once daily. Continue postoperative care. Circumcision has been performed this morning. Anticipate discharge home tomorrow. Time with Patient: Less than 30
[2020-11-28] MEDS: SENNOSIDES-DOCUSATE SODIUM 1 EACH TAB PO SCH ×2 (08:24→21:25)
[2020-11-28] MEDS ORDERED: HYDROcodone/APAP 7.5-325MG 1 EACH TAB PO PRN (21:10)
[2020-11-28] MEDS ORDERED: HYDROcodone/APAP 5-325MG 1 EACH TAB PO PRN (21:10)
[2020-11-28] MEDS: LACTATED RINGERS 1,000 ML IV SCH (21:38)
[2020-11-29] MEDS: IBUPROFEN 600 MG TAB PO SCH ×2 (02:28→06:05)
[2020-11-29] MEDS: ACETAMINOPHEN TAB 500 MG TAB PO SCH ×3 (02:28→10:18)
--- NOTE | 2020-11-29 08:05 | P.DS ---
Providers Date of admission: 11/26/20 14:57 Expected date of discharge: 11/29/20 Attending physician: Kelly Redd Primary care physician: Stated None Hospital Course: This is a 24-year-old female 2 para 0010 EDC 11/22/2020 who presented at 40-5/7 weeks' gestation for Cytotec induction for postdates and unfavorable cervix. Please see dictated history and physical for details. She received 3 doses of Cytotec 25 MCG's, 3 hours apart. Following morning artificial amniorrhexis revealed clear fluid. Ultimately patient had an and arrest of dilatation and descent and went on to deliver via low transverse section a liveborn male infant. There was a nuchal cord 1, he was in the left occiput transverse position. scores 9 and 10 at one and 5 minutes respectively, weighed 3820 g or 8 lbs. 7 oz. Please see my dictated delivery note for details. This morning the patient is doing well. She is voiding, ambulate in, passing flatus without difficulty. Vital signs are stable and she is afebrile. Incision is clean and dry, intact, Steri-Strips applied. Breast-feeding is going well. [place] has been circumcised and has also been cleared for discharge home. Patient is judged to be in very good condition for discharge. Extremities reveal +1 edema, pain is well managed. Breasts are not engorged. Chest is clear in all nino. Perineal body is clean and dry. Minimal to moderate lochia rubra. Patient will follow-up with me in the office in 2 weeks for incision check. She is reminded no intercourse, tampons or douching. She will use [id number] Advil or Aleve, or Motrin as needed for pain alternating with extra strength Tylenol as needed. She will call with any fevers shakes or chills, foul smelling or copious lochia, with the passage of large blood clots, with any pain not alleviated by [id number] meds, or indeed with any concerns. Assessment: Doing well second postoperative day Patient Condition at Discharge: Good Plan - Discharge Summary Discharge Rx Participant: No New Discharge Prescriptions: No Action Pnv No.95/Ferrous Fum/Folic AC [ Multivitamin Tablet] 1 tab PO DAILY Discharge Medication List Pnv No.95/Ferrous Fum/Folic AC [ Multivitamin Tablet] 1 tab PO DAILY 06/24/20 [History] Follow up Appointment(s)/Referral(s): Kelly Redd MD [STAFF PHYSICIAN] - 2 Weeks Discharge Disposition: HOME SELF-CARE
[2020-11-29] MEDS: SENNOSIDES-DOCUSATE SODIUM 1 EACH TAB PO SCH (08:11)
[2020-11-29 08:29] VITALS: BP 121/82; PULSE 80; TEMP 97.9
== END 2020-11-29 11:00 | disposition home or self-care (01) | DRG 788 ==
LOC: 4FBP 11-26 14:57
PROVIDERS: ADMIT Obstetrics & Gynecology; ATTEND Obstetrics & Gynecology
DX: O48.0 Post-term pregnancy (principal); O64.0XX0 Obstructed labor due to incomplete rotation of fetal head, not applicable or unspecified; Z37.0 Single live birth; Z3A.40 40 weeks gestation of pregnancy; Z79.899 Other long term (current) drug therapy; Z90.89 Acquired absence of other organs; Z98.890 Other specified postprocedural states; Z86.59 Personal history of other mental and behavioral disorders; Z86.19 Personal history of other infectious and parasitic diseases; Z98.818 Other dental procedure status; Z87.59 Personal history of other complications of pregnancy, childbirth and the puerperium; Z81.8 Family history of other mental and behavioral disorders; O69.81X0 Labor and delivery complicated by cord around neck, without compression, not applicable or unspecified
CPT/HCPCS: 85025; 86850; 86900; 86901

== ENCOUNTER 2020-11-25 02:30 | Outpatient (CLI) | payer OTHER, BC ==
[2020-11-25 04:16] VITALS: BP 130/81; PULSE 84; RESP 14; TEMP 96.9
--- NOTE | 2020-11-27 07:36 | P.MSEPDOC ---
Presenting Problems - Arrival Data Date of Arrival on Unit: 11/25/20 Time of Arrival on Unit: 02:30 Mode of Transport: Ambulatory - Complaint OB-Reason for Admission/Chief Complaint: Possible Onset of Labor Comment: pt states contractions are 7-8 minutes apart for the past 2 hours Medical History - Information : 2 Para: 0 Term: 0 : 0 Abortions: Spontaneous or Elective: 0 Number of Living Children: 0 - Gestational Age Gestational Age by ADELSO (wks/days): 40 Weeks and 2 Days Review of Systems - Review of Systems Constitutional: No problems Breast: No problems ENT: No problems Cardiovascular: No problems Respiratory: No problems Gastrointestinal: No problems Genitourinary: No problems Musculoskeletal: No problems Neurological: No problems Skin: No problems Vital Signs - Temperature Temperature: 96.9 F Temperature Source: Temporal Artery Scan - Pulse Right Pulse Rate: 84 Pulse Assessment Method: Automatic Cuff - Respirations Respiratory Rate: 14 Oxygen Delivery Method: Room Air O2 Sat by Pulse Oximetry: 98 - Blood Pressure Right Arm Blood Pressure: 130/81 Blood Pressure Mean: 97 Blood Pressure Source: Automatic Cuff Medical Screen Scoring - Cervical Exam Dilation (cm): 1 Effacement (%): 60 Membranes: Intact - Assessment - Baby A Baseline FHR: 120 Heart Rate - NICHD Category: Category I (Normal) NST: Reactive Physician Notification - Physician Notified Physician Notified Date: 11/25/20 Physician Notified Time: 04:00 Physician: Dr Redd New Order Received: Yes - Notification Comment Comment: august d/c patient home, have patient keep their appt in the office for today Maternal Triage Index - Maternal Triage Index Presenting for scheduled procedure w/no complaint: No - Stat/Priority 1 Stat Priority 1: No - Urgent/Priority 2 Urgent Priority 2: No - Prompt/Priority 3 Prompt Priority 3: No - Non-Urgent/Priority 4 Non-Urgent Priority 4: Yes Criteria Met for Priority 4: contrctions every 7-8 minutes, rating pain at a 3 out of 10 Disposition - Disposition OB Disposition: Physician follow up in office, Discharge to home Discharge Date: 11/25/20 Discharge Time: 04:05 I agree with the RN Medical Screening Exam: Yes Case reviewed; plan agreed upon as documented in EMR&OBIX.: Yes Comments: Patient was neither seen nor examined by me Diagnosis: FALSE LABOR AT OR AFTER 37 COMPLETED WEEKS OF GESTATION
== END 2020-11-25 04:05 | disposition home or self-care (01) ==
LOC: FBPOP 02:30
PROVIDERS: ATTEND Obstetrics & Gynecology
DX: O47.1 False labor at or after 37 completed weeks of gestation (principal); Z3A.40 40 weeks gestation of pregnancy
CPT/HCPCS: 99213

== ENCOUNTER 2022-07-27 03:14 | Emergency (ER) | payer BC, OTHER ==
[2022-07-27 03:33] VITALS: TEMP 97.5
[2022-07-27] MEDS ORDERED: ONDANSETRON 4 MG/2 ML VIAL IVP STA (03:58)
[2022-07-27] MEDS ORDERED: SODIUM CHLORIDE 0.9% 1,000 ML IV ONE (03:58)
--- NOTE | 2022-07-27 04:04 | ED ---
Nausea/Vomiting/Diarrhea HPI - General Chief complaint: Nausea/Vomiting/Diarrhea Stated complaint: Head Injury, Near-syncope, Vomiting Time Seen by Provider: 07/27/22 03:37 Source: patient Mode of arrival: ambulatory Limitations: no limitations - History of Present Illness Initial comments: This patient is 26-year-old woman who has complaints of nausea vomiting and diarrhea as well as some associated headache. Further history reveals patient had actually had a fall and hit her head which preceded the onset of the vomiting and diarrhea. The patient states that 2 family members have had similar vomiting and diarrhea. The patient states she had fallen and hit her head and then been seen at urgent care that she works at work she was felt to have had a concussion as she was having some coming nausea. Patient states that her headache is actually were some is concerned that this is more than dehydration that its possibility of head injury as well. No neurologic symptoms. No change in sensation, speech, swallowing, no weakness or numbness of the extremities. MD complaint: nausea, vomiting, diarrhea -: hour(s) Description of Vomiting: food contents Description of Diarrhea: water Associated Abdominal Pain: Yes Location: LUQ Radiation: none Severity: moderate Quality: dull Consistency: intermittent Improves with: none Worsens with: none Associated Symptoms: denies other symptoms - Related Data Home Medications Medication Instructions Recorded Confirmed Pnv No.95/Ferrous Fum/Folic AC 1 tab PO DAILY 06/24/20 11/26/20 [ Multivitamin Tablet] Previous Rx's Medication Instructions Recorded Ondansetron Odt [Zofran ODT] 4 mg PO Q8HR PRN #10 tab 07/27/22 Allergies Allergy/AdvReac Type Severity Reaction Status Date / Time No Known Allergies Allergy Verified 11/25/20 02:39 Review of Systems ROS Statement: Those systems with pertinent positive or pertinent negative responses have been documented in the HPI. ROS Other: All systems not noted in ROS Statement are negative. Constitutional: Denies: fever, chills Respiratory: Denies: cough, dyspnea Cardiovascular: Denies: chest pain, palpitations, edema Gastrointestinal: Reports: abdominal pain, nausea, vomiting, diarrhea. Denies: hematemesis, melena, hematochezia Genitourinary: Denies: dysuria, hematuria Musculoskeletal: Denies: back pain Skin: Denies: rash Neurological: Denies: headache, weakness Past Medical History Past Medical History: No Reported History History of Any Multi-Drug Resistant Organisms: None Reported Past Surgical History: Adenoidectomy, Section, Tonsillectomy Past Anesthesia/Blood Transfusion Reactions: No Reported Reaction Past Psychological History: ADD/ADHD Smoking Status: Never smoker Past Alcohol Use History: None Reported Past Drug Use History: None Reported - Past Family History Mother Family Medical History: No Reported History General Exam Limitations: no limitations General appearance: alert, in no apparent distress Head exam: Present: atraumatic, normocephalic Eye exam: Present: normal appearance. Absent: scleral icterus, conjunctival injection Neck exam: Present: normal inspection Respiratory exam: Present: normal lung sounds bilaterally. Absent: respiratory distress, wheezes, rales, rhonchi, stridor Cardiovascular Exam: Present: regular rate, normal rhythm, normal heart sounds. Absent: systolic murmur, diastolic murmur, rubs, gallop GI/Abdominal exam: Present: soft. Absent: distended, tenderness, guarding, rebound, rigid, mass, pulsatile mass Back exam: Present: normal inspection. Absent: CVA tenderness (R), CVA tenderness (L) Neurological exam: Present: alert, oriented X3, CN II-XII intact. Absent: motor sensory deficit Skin exam: Present: warm, dry, intact, normal color. Absent: rash Course Vital Signs 07/27/22 07/27/22 03:28 06:42 Temperature 97.5 F L Pulse Rate 90 89 Respiratory 16 18 Rate Blood Pressure 108/76 109/60 O2 Sat by Pulse 97 98 Oximetry Medical Decision Making - Medical Decision Making Patient is 26-year-old woman here for 2 complaints. She had computed tomography scan of the brain interpreted by myself as not showing acute bony trauma or intracranial hemorrhage. The patient also having nausea vomiting and diarrhea which are improved with medication here. I suspect majority his symptoms related to gastroenteritis as to family members have had similar symptoms. Discussed possibility of concussion related to nausea and vomiting. Recommend no exertion until free of symptoms. Recommend follow-up with neurology if she is not return to baseline within 48 hours. Discussed appropriate further care and follow-up as well as return parameters. Was pt. sent in by a medical professional or institution (, PA, [employer], urgent care, hospital, or senior care...) When possible be specific @ -[No] Did you speak to anyone other than the patient for history (EMS, parent, family, police, friend...)? What history was obtained from this source @ -[No] Did you review nursing and triage notes (agree or disagree)? Why? @ -[I reviewed and agree with nursing and triage notes] Were old charts reviewed (outside hosp., previous admission, EMS record, old EK G, old radiological studies, urgent care reports/EKG's, senior care records)? Report findings @ -[No old charts were reviewed] Differential Diagnosis (chest pain, altered mental status, abdominal pain women, abdominal pain men, vaginal bleeding, weakness, fever, dyspnea, syncope, headache, dizziness, GI bleed, back pain, seizure, CVA, palpatations, mental he alth, musculoskeletal)? @ -[Differential Abdominal Pain Women: Appendicitis, Cholecystitis, diverticulosis, , pancreatitis, hepatitis, UTI, gastroenteritis, incarcerated hernia, bowel obstruction, constipation, inflammatory bowel, hepatitis, peptic ulcer disease, perforated viscus, , kidney stone, , this is not meant to be an all-inclusive list EKG interpreted by me (3pts min.). @ -[ X-rays interpreted by me (1pt min.). @ -[None done] CT interpreted by me (1pt min.). @ -[As above U/S interpreted by me (1pt. min.). @ -[None done] What testing was considered but not performed or refused? (CT, X-rays, U/S, labs)? Why? @ -[None] What meds were considered but not given or refused? Why? @ -[None] Did you discuss the management of the patient with other professionals (professionals i.e. , PA, [employer], lab, RT, psych nurse, social worker health services, pad machine operator, teacher, ground defence officer, director of casework department)? Give summary @ -[No] Was smoking cessation discussed for >3mins.? @ -[No] Was critical care preformed (if so, how long)? @ -[No] Were there social determinants of health that impacted care today? How? (Homelessness, low income, unemployed, alcoholism, drug addiction, transportation, low edu. Level, literacy, decrease access to med. care, [facility], rehab)? @ -[No] Was there de-escalation of care discussed even if they declined (Discuss DNR or withdrawal of care, Hospice)? DNR status @ -[No] What co-morbidities impacted this encounter? (DM, HTN, Smoking, COPD, CAD, Cancer, CVA, ARF, Chemo, Hep., AIDS, mental health diagnosis, sleep apnea, morbid obesity)? @ -[None] Was patient admitted / discharged? Hospital course, mention meds given and route, prescriptions, significant lab abnormalities, going to OR and other pertinent info. @ -[Discharge with close follow-up Undiagnosed new problem with uncertain prognosis? @ -[No] Drug Therapy requiring intensive monitoring for toxicity (Heparin, Nitro, Insulin, Cardizem)? @ -[No] Were any procedures done? @ -[No] Diagnosis/symptom? @ -[1. Acute gastroenteritis, uncomplicated 2. Acute closed head injury, uncomplicated Acute, or Chronic, or Acute on Chronic? @ -[default] Uncomplicated (without systemic symptoms) or Complicated (systemic symptoms)? @ -[default] Side effects of treatment? @ -[No] Exacerbation, Progression, or Severe Exacerbation? @ -[No] Poses a threat to life or bodily function? How? (Chest pain, [place], [place], pneumonia, PE, COPD, DKA, ARF, appy, cholecystitis, CVA, Diverticulitis, Homicidal, Suicidal, threat to staff... and all critical care pts) @ -[No] - Lab Data Result diagrams: 07/27/22 04:00 07/27/22 04:00 Lab Results 07/27/22 07/27/22 07/27/22 Range/Units 04:00 04:00 04:05 WBC 13.7 H (3.8-10.6) k/uL RBC 4.75 (3.80-5.40) m/uL Hgb 13.9 (11.4-16.0) gm/dL Hct 39.5 (34.0-46.0) % MCV 83.2 (80.0-100.0) fL MCH 29.3 (25.0-35.0) pg MCHC 35.2 (31.0-37.0) g/dL RDW 13.0 (11.5-15.5) % Plt Count 233 (150-450) k/uL MPV 7.6 Neutrophils % 92 % Lymphocytes % 5 % Monocytes % 2 % Eosinophils % 0 % Basophils % 0 % Neutrophils # 12.7 H (1.3-7.7) k/uL Lymphocytes # 0.6 L (1.0-4.8) k/uL Monocytes # 0.3 (0-1.0) k/uL Eosinophils # 0.1 (0-0.7) k/uL Basophils # 0.0 (0-0.2) k/uL Sodium 139 (137-145) mmol/L Potassium 4.0 (3.5-5.1) mmol/L Chloride 106 (98-107) mmol/L Carbon Dioxide 23 (22-30) mmol/L Anion Gap 10 mmol/L BUN 16 (7-17) mg/dL Creatinine 0.59 (0.52-1.04) mg/dL Est GFR (CKD-EPI)AfAm >90 (>60 ml/min/1.73 sqM) Est GFR (CKD-EPI)NonAf >90 (>60 ml/min/1.73 sqM) Glucose 118 H (74-99) mg/dL Calcium 9.3 (8.4-10.2) mg/dL Total Bilirubin 1.0 (0.2-1.3) mg/dL AST 21 (14-36) U/L ALT 18 (4-34) U/L Alkaline Phosphatase 59 (38-126) U/L Total Protein 6.9 (6.3-8.2) g/dL Albumin 4.6 (3.5-5.0) g/dL Urine HCG, Qual Not Detected (Not Detectd) Coronavirus (PCR) (Not Detectd) 07/27/22 Range/Units 05:02 WBC (3.8-10.6) k/uL RBC (3.80-5.40) m/uL Hgb (11.4-16.0) gm/dL Hct (34.0-46.0) % MCV (80.0-100.0) fL MCH (25.0-35.0) pg MCHC (31.0-37.0) g/dL RDW (11.5-15.5) % Plt Count (150-450) k/uL MPV Neutrophils % % Lymphocytes % % Monocytes % % Eosinophils % % Basophils % % Neutrophils # (1.3-7.7) k/uL Lymphocytes # (1.0-4.8) k/uL Monocytes # (0-1.0) k/uL Eosinophils # (0-0.7) k/uL Basophils # (0-0.2) k/uL Sodium (137-145) mmol/L Potassium (3.5-5.1) mmol/L Chloride (98-107) mmol/L Carbon Dioxide (22-30) mmol/L Anion Gap mmol/L BUN (7-17) mg/dL Creatinine (0.52-1.04) mg/dL Est GFR (CKD-EPI)AfAm (>60 ml/min/1.73 sqM) Est GFR (CKD-EPI)NonAf (>60 ml/min/1.73 sqM) Glucose (74-99) mg/dL Calcium (8.4-10.2) mg/dL Total Bilirubin (0.2-1.3) mg/dL AST (14-36) U/L ALT (4-34) U/L Alkaline Phosphatase (38-126) U/L Total Protein (6.3-8.2) g/dL Albumin (3.5-5.0) g/dL Urine HCG, Qual (Not Detectd) Coronavirus (PCR) Not Detected (Not Detectd) Disposition Clinical Impression: Gastroenteritis, Closed head injury Disposition: HOME SELF-CARE Condition: Good Instructions (If sedation given, give patient instructions): Acute Nausea and Vomiting (ED) Prescriptions: Ondansetron Odt [Zofran ODT] 4 mg PO Q8HR PRN #10 tab PRN Reason: Nausea Is patient prescribed a controlled substance at d/c from ED?: No Referrals: Rubens Villeda MD [Primary Care Provider] - 1-2 days
[2022-07-27 04:20] LABS: ALT 18 U/L (4-34); AST 21 U/L (14-36); African American GFR (CKD) >90 (>60 ml/min/1.73 sqM); Albumin 4.6 g/dL (3.5-5.0); Alkaline Phosphatase 59 U/L (38-126); Anion Gap 10 mmol/L; Blood Urea Nitrogen 16 mg/dL (7-17); Calcium 9.3 mg/dL (8.4-10.2); Carbon Dioxide 23 mmol/L (22-30); Chloride 106 mmol/L (98-107); Glucose 118 mg/dL (74-99); Non-African American GFR(CKD) >90 (>60 ml/min/1.73 sqM); Sodium 139 mmol/L (137-145); Total Protein 6.9 g/dL (6.3-8.2)
[2022-07-27 04:40] LABS: Basophils % (A) 0 %; Eosinophils # (A) 0.1 k/uL (0-0.7); Eosinophils % (A) 0 %; HCT 39.5 % (34.0-46.0); HGB 13.9 gm/dL (11.4-16.0); Lymphocytes # (A) 0.6 k/uL (1.0-4.8); Lymphocytes % (A) 5 %; MCH 29.3 pg (25.0-35.0); MCHC 35.2 g/dL (31.0-37.0); MCV 83.2 fL (80.0-100.0); Mean Platelet Volume 7.6; Monocytes # (A) 0.3 k/uL (0-1.0); Monocytes % (A) 2 %; Neutrophils # (A) 12.7 k/uL (1.3-7.7); Neutrophils % (A) 92 %; Platelet Count 233 k/uL (150-450); RBC 4.75 m/uL (3.80-5.40); WBC 13.7 k/uL (3.8-10.6)
--- NOTE | 2022-07-27 05:05 | CT ---
EXAMINATION TYPE: CT brain wo con DATE OF EXAM: 07/27/2022 COMPARISON: None. HISTORY: Trauma injury with nausea and vomiting CT DLP: 1095 mGycm. Automated Exposure Control for Dose Reduction was Utilized. TECHNIQUE: CT scan of the head is performed without contrast. FINDINGS: There is no acute intracranial hemorrhage, mass effect, or midline shift identified. The ventricles and sulci are within normal limits in size. The villa-white matter differentiation is main tained. The globes are intact and the visualized sinuses are clear. The calvarium is intact. IMPRESSION: Unremarkable study.
[2022-07-27] MEDS ORDERED: METOCLOPRAMIDE 5 MG/ML 2 ML VIAL IVP STA (05:19)
[2022-07-27] MEDS ORDERED: diphenhydrAMINE 50 MG/ML 1 ML VIAL IVP STA (05:19)
[2022-07-27 06:42] VITALS: BP 109/60; PULSE 89; RESP 18
== END 2022-07-27 06:42 | disposition home or self-care (01) ==
LOC: EC 03:14
DX: S09.90XA Unspecified injury of head, initial encounter (principal); K52.9 Noninfective gastroenteritis and colitis, unspecified; Z20.822 Contact with and (suspected) exposure to COVID-19; W01.198A Fall on same level from slipping, tripping and stumbling with subsequent striking against other object, initial encounter
CPT/HCPCS: 36415; 80053; 85025; 81025; 87635; 70450; 99284; 96374; 96375 ×2; 96361; J1200; J2765; J2405

== ENCOUNTER → 2022-12-04 | Outpatient (CLI) | payer BC ==
--- NOTE | 2022-12-04 10:16 | US ---
EXAMINATION TYPE: US abdomen complete DATE OF EXAM: 12/04/2022 COMPARISON: NONE CLINICAL INDICATION: Female, 26 years old with history of R10.13 EPIGASTRIC PAIN; epigastric pain x 2 .5 months TECHNIQUE: Multiple sonographic images of the abdomen are obtained. FINDINGS: EXAM MEASUREMENTS: Liver Length: 15.7 cm Gallbladder Wall: 0.2 cm CBD: 0.6 cm Spleen: 11.3 cm Right Kidney: 9.1 x 5.3 x 5.4 cm Left Kidney: 11.6 x 4.5 x 5.4 cm Pancreas: portions seen appear wnl Liver: wnl Gallbladder: wnl Evidence for sonographic Duong's sign: no CBD: wnl Spleen: wnl Right Kidney: wnl Left Kidney: wnl Upper IVC: wnl Abd Aorta: wnl The liver is homogenous. The intrahepatic portion of the IVC and proximal abdominal aorta are within normal limits. There is no evidence of cholelithiasis. Common bile duct is unremarkable. The visu alized portions of the pancreas are homogenous. The spleen is unremarkable. Kidneys are symmetric a nd free of hydronephrosis. No renal lesions are seen. IMPRESSION: Unremarkable study.
== END | disposition home or self-care (01) ==
LOC: RADUSWWP 08:59
PROVIDERS: ATTEND Family Medicine
DX: R10.13 Epigastric pain (principal)
CPT/HCPCS: 76700

== ENCOUNTER 2023-01-01 09:33 | Emergency (ER) | payer OTHER, BC ==
[2023-01-01 09:43] VITALS: RESP 18
--- NOTE | 2023-01-01 09:49 | ED ---
Recheck HPI - General Chief Complaint: Recheck/Abnormal Lab/Rx Stated Complaint: Needle stick/[facility] Time Seen by Provider: 01/01/23 09:48 Source: patient, RN notes reviewed Mode of arrival: ambulatory Limitations: no limitations - History of Present Illness Initial Comments: This is a 19-year-old female who presents to the emergency department for a needle stick injury. 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 She did not administer any insulin to herself. States that the area is somewhat uncomfortable, but denies any substantial pain. Tetanus vaccine is up-to-date. The patient she was giving the insulin to did not have any communicable illnesses. MD Complaint: other (Needle stick) - Related Data Home Medications Medication Instructions Recorded Confirmed Pnv No.95/Ferrous Fum/Folic AC 1 tab PO DAILY 06/24/20 11/26/20 [ Multivitamin Tablet] Previous Rx's Medication Instructions Recorded Ondansetron Odt [Zofran ODT] 4 mg PO Q8HR PRN #10 tab 07/27/22 Allergies Allergy/AdvReac Type Severity Reaction Status Date / Time No Known Allergies Allergy Verified 01/01/23 09:43 Review of Systems ROS Statement: Those systems with pertinent positive or pertinent negative responses have been documented in the HPI. ROS Other: All systems not noted in ROS Statement are negative. Past Medical History Past Medical History: No Reported History History of Any Multi-Drug Resistant Organisms: None Reported Past Surgical History: Adenoidectomy, Section, Tonsillectomy Past Anesthesia/Blood Transfusion Reactions: No Reported Reaction Past Psychological History: ADD/ADHD Smoking Status: Never smoker Past Alcohol Use History: None Reported Past Drug Use History: None Reported - Past Family History Mother Family Medical History: No Reported History General Exam Limitations: no limitations General appearance: alert, in no apparent distress Head exam: Present: atraumatic, normocephalic, normal inspection Respiratory exam: Present: normal lung sounds bilaterally. Absent: respiratory distress, wheezes, rales, rhonchi, stridor Cardiovascular Exam: Present: regular rate, normal rhythm, normal heart sounds. Absent: systolic murmur, diastolic murmur, rubs, gallop, clicks Extremities exam: Present: other (Minor puncture wound to the palmar aspect of the left hand. No active bleeding.) Neurological exam: Present: alert, oriented X3, CN II-XII intact Psychiatric exam: Present: normal affect, normal mood Course Vital Signs 01/01/23 01/01/23 09:39 10:32 Temperature 98.2 F 98.1 F Pulse Rate 76 72 Respiratory 18 18 Rate Blood Pressure 96/62 104/72 O2 Sat by Pulse 98 98 Oximetry Medical Decision Making - Medical Decision Making This is a 27-year-old female who presents to the emergency department for a needle stick injury. Was pt. sent in by a medical professional or institution? @ -No Did you speak to anyone other than the patient for history? @ -No Did you review nursing and triage notes? @ -Yes, and I agree, it is accurate with regards to the patient's symptoms. Were old charts reviewed? @ -No Differential Diagnosis? @ -Not applicable EKG interpreted by me (3pts min.)? @ -Not obtained X-rays interpreted by me (1pt min.)? @ -Not obtained CT interpreted by me (1pt min.)? @ -Not obtained U/S interpreted by me (1pt. min.)? @ -Not obtained What testing was considered but not performed? (CT, X-rays, U/S, labs)? Why? @ -None What meds were considered but not given? Why? @ -None Did you discuss the management of the patient with other professionals? @ -No Did you reconcile home meds? @ -No Was smoking cessation discussed for >3mins.? @ -No Was critical care preformed (if so, how long)? @ -No Were there social determinants of health that impacted care today? How? (Homelessness, low income, unemployed, alcoholism, drug addiction, transportation, low edu. Level, literacy, decrease access to med. care, care home, r ehab)? @ -No Was there de-escalation of care discussed even if they declined? (Discuss DNR or withdrawal of care, Hospice)? @ -No What co-morbidities impacted this encounter? (DM, HTN, Smoking, COPD, CAD, Cancer, CVA, Hep., AIDS, mental health diagnosis, sleep apnea, morbid obesity)? @ -None Was patient admitted / discharged? @ -Discharged. The wound itself is fairly superficial and the patient did not administer any insulin to herself. Tetanus vaccine is up-to-date. The required [facility] testing for needle stick injuries was obtained and the appropriate paperwork was filled out. Patient discharged home in stable condition. Undiagnosed new problem with uncertain prognosis? @ -None Drug Therapy requiring intensive monitoring for toxicity (Heparin, Nitro, Insulin, Cardizem)? @ -None Were any procedures done? @ -None Diagnosis/symptom? @ -Needle stick injury Acute, or Chronic, or Acute on Chronic? @ -Acute Uncomplicated (without systemic symptoms) or Complicated (systemic symptoms)? @ -Uncomplicated Side effects of treatment? @ -None Exacerbation, Progression, or Severe Exacerbation] @ -Not applicable Poses a threat to life or bodily function? @ -No Return precautions reviewed in depth, the patient is instructed to return to the emergency department with any new, worsening, or concerning symptoms. Patient verbalized understanding. This case was discussed in detail with the attending ED physician, Dr. Cohen. Presentation, findings, and treatment plan discussed in detail as well. Disposition Clinical Impression: Needle stick injury of finger of left hand Disposition: HOME SELF-CARE Instructions (If sedation given, give patient instructions): Needle Stick Injuries (ED) Additional Instructions: Return to the emergency department with any new, worsening, or concerning symptoms. Follow up with your primary care provider in 1-2 days. Is patient prescribed a controlled substance at d/c from ED?: No Referrals: Rubens Villeda MD [Primary Care Provider] - 1-2 days
[2023-01-01 10:34] VITALS: BP 104/72; PULSE 72; TEMP 98.1
[2023-01-01 16:07] LABS: Hepatitis C IgG Antibody Nonreactive
[2023-01-01 16:50] LABS: Hepatitis B Surface AB- Quant 4.5 mIU/mL
[2023-01-01 21:42] LABS: HIV 2 AB Non-Reactive (Non-Reactive); HIV AB P24 Non-Reactive (Non-Reactive); HIV P24 AG Non-Reactive (Non-Reactive)
== END 2023-01-01 10:55 | disposition home or self-care (01) ==
LOC: EC 09:33
DX: S61.432A Puncture wound without foreign body of left hand, initial encounter (principal); W46.1XXA Contact with contaminated hypodermic needle, initial encounter
CPT/HCPCS: 36415; 86706; 86803; 87390; 99283

== ENCOUNTER 2023-07-27 09:56 | Inpatient (IN) | payer BC, OTHER ==
[2023-07-27] MEDS ORDERED: TRANEXAMIC 1,000 MG/100ML-NACL 1,000 MG in EMPTY BAG 1 BAG IV PRN (10:16)
[2023-07-27] MEDS ORDERED: METHYLERGONOVINE 0.2 MG/ML 1 ML AMP IM PRN (10:16)
[2023-07-27] MEDS ORDERED: CARBOPROST TROMETHAMINE 250 MCG/ML 1 ML AMP IM PRN (10:16)
[2023-07-27] MEDS ORDERED: OXYTOCIN 10 UNIT/ML 1 ML VIAL IM PRN (10:16)
[2023-07-27] MEDS ORDERED: miSOPROStoL 200 MCG TAB PO PRN (10:16)
[2023-07-27] MEDS: LACTATED RINGERS 1,000 ML IV ONE (10:27)
[2023-07-27 10:43] LABS: Basophils % (A) 0 %; Eosinophils # (A) 0.1 k/uL (0-0.7); Eosinophils % (A) 1 %; HCT 31.9 % (34.0-46.0); HGB 10.4 gm/dL (11.4-16.0); Hypochromasia Moderate; Lymphocytes # (A) 1.1 k/uL (1.0-4.8); Lymphocytes % (A) 10 %; MCH 26.2 pg (25.0-35.0); MCHC 32.6 g/dL (31.0-37.0); MCV 80.4 fL (80.0-100.0); Mean Platelet Volume 9.1; Monocytes # (A) 0.4 k/uL (0-1.0); Monocytes % (A) 4 %; Neutrophils % (A) 84 %; Platelet Count 262 k/uL (150-450); Poikilocytosis Slight; RBC 3.96 m/uL (3.80-5.40); RDW 15.2 % (11.5-15.5); WBC 10.8 k/uL (3.8-10.6)
[2023-07-27] MEDS: CITRIC ACID-SODIUM CITRATE 15 ML CUP PO ONE (11:37)
[2023-07-27] MEDS ORDERED: OXYTOCIN 30 UNITS/500 ML NS BAG IV ONE (12:08)
[2023-07-27] MEDS ORDERED: MORPHINE SULFATE (PF) 0.3 MG/0.3 ML SYR ONE (12:08)
[2023-07-27] MEDS ORDERED: PHENYLEPHRINE-0.9% NACL SYG 1,000 MCG/10 ML SYRINGE ONE (12:08)
[2023-07-27] MEDS ORDERED: ONDANSETRON 4 MG/2 ML VIAL ONE (12:08)
[2023-07-27] MEDS ORDERED: ePHEDrine 50 MG/ML 1 ML VIAL ONE (12:08)
--- NOTE | 2023-07-27 12:52 | P.HPOB ---
History of Present Illness H&P Date: 07/27/23 Chief Complaint: IUP at 39-4/7 weeks, history of x 1, desires repeat 27-year-old G2, P1 at 39-4/7 weeks presents for scheduled repeat section. Patient has been obtaining routine care with myself which has been essentially uncomplicated. Review of Systems Constitutional: Denies chills, Denies fatigue, Denies fever Ears, nose, mouth and throat: Denies headache Cardiovascular: Reports leg edema Respiratory: Denies dyspnea Gastrointestinal: Denies nausea, Denies vomiting Genitourinary: Reports Past Medical History Past Medical History: GERD/Reflux History of Any Multi-Drug Resistant Organisms: None Reported Past Surgical History: Adenoidectomy, Section, Tonsillectomy Past Anesthesia/Blood Transfusion Reactions: No Reported Reaction Past Psychological History: ADD/ADHD Smoking Status: Never smoker Past Alcohol Use History: None Reported Past Drug Use History: None Reported - Past Family History Mother Family Medical History: No Reported History Father Additional Family Medical History / Comment(s): of suicide Medications and Allergies Home Medications Medication Instructions Recorded Confirmed Type Pnv No.95/Ferrous Fum/Folic AC 1 tab PO DAILY 06/24/20 07/27/23 History [ Multivitamin Tablet] Aspirin 81 mg PO DAILY 06/22/23 07/27/23 History Famotidine [Pepcid] 40 mg PO DAILY 07/19/23 07/27/23 History Allergies Allergy/AdvReac Type Severity Reaction Status Date / Time No Known Allergies Allergy Verified 07/27/23 10:14 Exam Osteopathic Statement: *. No significant issues noted on an osteopathic structural exam other than those noted in the History and Physical/Consult. Vital Signs Temp Pulse Resp BP Pulse Ox 07/27/23 10:40 98.6 F 93 16 122/78 98 Intake and Output 07/26/23 07/27/23 07/27/23 22:59 06:59 14:59 Other: Weight 87.09 kg Targeted physical exam is performed this date General is a well-nourished well- developed female in no acute distress, breathing is noted to be nonlabored, heart has a regular rate and rhythm, abdomen is gravid and appropriate for gestational age, heart tones are noted to be category 1 and she is not nathan. Cervical exam is deferred. Results Result Diagrams: 07/27/23 10:26 Abnormal Lab Results - Last 24 Hours (Table) 07/27/23 Range/Units 10:26 WBC 10.8 H (3.8-10.6) k/uL Hgb 10.4 L (11.4-16.0) gm/dL Hct 31.9 L (34.0-46.0) % Neutrophils # 9.0 H (1.3-7.7) k/uL Assessment and Plan (1) Term Current Visit: Yes Status: Acute Code(s): Z34.90 - ENCNTR FOR SUPRVSN OF NORMAL , UNSP, UNSP TRIMESTER SNOMED Code(s): 59325213 (2) History of Narrative/Plan: Desires repeat Current Visit: Yes Status: Acute Code(s): Z98.891 - HISTORY OF UTERINE SCAR FROM PREVIOUS SURGERY SNOMED Code(s): 892431553
[2023-07-27] MEDS ORDERED: SIMETHICONE 80 MG CHEWABLE PO PRN (12:55)
[2023-07-27] MEDS ORDERED: diphenhydrAMINE 25 MG CAP PO PRN (12:55)
[2023-07-27] MEDS ORDERED: METOCLOPRAMIDE 5 MG/ML 2 ML VIAL IVP PRN (12:55)
[2023-07-27] MEDS ORDERED: diphenhydrAMINE 50 MG/ML 1 ML VIAL IVP PRN (12:55)
[2023-07-27] MEDS ORDERED: NALOXONE 0.4 MG/ML 1 ML VIAL IV PRN (12:55)
[2023-07-27] MEDS ORDERED: ZOLPIDEM 5 MG TAB PO PRN (12:55)
[2023-07-27] MEDS ORDERED: ONDANSETRON 4 MG/2 ML VIAL IVP PRN (12:55)
[2023-07-27] MEDS ORDERED: diphenhydrAMINE 50 MG CAP PO PRN (12:55)
--- NOTE | 2023-07-27 12:55 | P.OP ---
Date of Procedure: 07/27/23 Preoperative Diagnosis: IUP at 39-4/7 weeks, history of x 1, desires repeat Postoperative Diagnosis: Same Procedure(s) Performed: Repeat section Anesthesia: spinal Surgeon: Radha Cash Webbing Weaver #1: Jacinda Evans Estimated Blood Loss (ml): 535 IV fluids (ml): 1,500 Urine output (ml): 100 Pathology: none sent Condition: stable Disposition: observation Indications for Procedure: History of x 1, desires repeat Operative Findings: Normal uterus tubes and ovaries were appreciated, some anterior scarring of the bladder was appreciated. Viable female infant delivered at 1227, weight of 8 pounds 3 ounces. Description of Procedure: The patient was prepped and draped in the usual fashion after spinal anesthesia was administered by the anesthesia department A Pfannenstiel incision was made and extended of the abdominal cavity without difficulty. The bladder peritoneum was elevated and incised and reflected distally. A 2 cm incision was made in the transverse plane of the lower uterine segment to enter the uterus at which time clear fluid was noted. The incision was extended in both directions using the bandage scissors. The head was encountered within the field and delivered up and through the incision where the nose and mouth were thoroughly suctioned. Remainder of the infant was delivered onto the surgical field where the cord was doubly clamped, cut, and the infant was passed to awaiting RN. . The placenta was delivered manually, intact, and was grossly normal with a grossly normal three-vessel cord. The uterus was exteriorized and the interior cavity of the uterus swept of any remaining placental and membranous fragments with a laparotomy sponge. The margins of the incision were grasped with Allis clamps and the incision closed in 2 layers. First layer was a running locking layer of 0 Vicryl from margin to margin followed by a second layer of imbricating 0 Vicryl from margin to margin. Any small points of bleeding were then made hemostatic with the Bovie. Once hemostasis was achieved, the posterior cul-de-sac was suctioned with a guard and the uterine and ovarian findings are as noted above. The uterus was replaced within the abdominal cavity and the gutters swept of any remaining blood fluid or clot. The incision was again reexamined and hemostasis was noted to be excellent. Any small point of bleeding were made hemostatic with the Bovie. Once hemostasis was achieved the parietal peritoneum was loosely reapproximated. The layer of muscles were examined and made hemostatic with the Bovie. Attention was then turned to the fascia which was closed with 2 running stitches of 0 Vicryl proceeding from the lateral margins to the midpoint. The subcutaneous tissues were irrigated, made hemostatic with the Bovie, and reapproximated with a running stitch of 30 Vicryl. The skin was reapproximated with 4-0 Vicryl. Estimated blood loss for the case was approximately 535 mL. All sponge instrument and needle counts are correct. There were no complications. The patient tolerated the procedure well and proceeded to the recovery room in stable condition. Both mother and are resting comfortably in recovery.
[2023-07-27] MEDS: IBUPROFEN IV 800 MG in SODIUM CHLORIDE 0.9% 250 ML IV SCH (13:51)
[2023-07-27] MEDS: diphenhydrAMINE 50 MG/ML 1 ML VIAL IVP PRN (15:29)
[2023-07-27] MEDS: LACTATED RINGERS 1,000 ML IV SCH ×2 (16:24→17:12)
[2023-07-27] MEDS: ACETAMINOPHEN IV (For NPO) 1,000 MG in EMPTY BAG 1 BAG IVPB SCH (17:11)
[2023-07-27] MEDS: ACETAMINOPHEN TAB 500 MG TAB PO SCH (17:17)
[2023-07-27] MEDS: IBUPROFEN 600 MG TAB PO SCH (20:56)
[2023-07-27] MEDS: SENNOSIDES-DOCUSATE SODIUM 1 EACH TAB PO SCH (20:57)
--- NOTE | 2023-07-28 05:24 | P.PN ---
Progress Note - Text Progress Note Date: 07/28/23 POD 1 from c section with intrathecal morphine. Patient and in the room, answered questions appropriately - doing well, pain controlled, 05/05. Able to ambulate, minor pruritis. Able to micturate and passing gas. No mental status changes. Denies chest pain or shortness of breath. Plan to go home today Contact anesthesia with any questions.
[2023-07-28 07:49] LABS: Basophils % (A) 0 %; Eosinophils # (A) 0.1 k/uL (0-0.7); Eosinophils % (A) 1 %; Hypochromasia Moderate; Lymphocytes # (A) 0.7 k/uL (1.0-4.8); Lymphocytes % (A) 8 %; MCH 26.6 pg (25.0-35.0); MCHC 32.6 g/dL (31.0-37.0); MCV 81.7 fL (80.0-100.0); Mean Platelet Volume 8.5; Monocytes # (A) 0.3 k/uL (0-1.0); Monocytes % (A) 4 %; Neutrophils # (A) 8.2 k/uL (1.3-7.7); Neutrophils % (A) 87 %; Platelet Count 214 k/uL (150-450); RBC 3.31 m/uL (3.80-5.40); RDW 15.3 % (11.5-15.5); WBC 9.5 k/uL (3.8-10.6)
[2023-07-28 07:58] LABS: HGB 8.8 gm/dL (11.4-16.0)
[2023-07-28] MEDS: PRENATAL VIT-IRON-FOLIC ACID 1 EACH TABLET PO SCH (07:58)
[2023-07-29 01:21] VITALS: RESP 16
[2023-07-29 08:18] VITALS: BP 133/70; PULSE 89; TEMP 97.8
--- NOTE | 2023-07-29 09:07 | P.DS ---
Providers Date of admission: 07/27/23 09:56 Expected date of discharge: 07/29/23 Attending physician: Radha Cash Primary care physician: Stated None - Discharge Diagnosis(es) (1) Term Current Visit: Yes Status: Acute (2) History of Current Visit: Yes Status: Acute (3) Status post section Current Visit: Yes Status: Acute Hospital Course: This is a 27 yo G2 now P2 that presented to labor and delivery on 07/26 for scheduled repeat section. Patient was receiving routine care with myself which was essentially uncomplicated. For full details and the patient please see the dictated history and physical. Patient was taken back to the operating room where repeat section was completed without difficulty. Some anterior scarring of the bladder was appreciated. Viable female was delivered at 1227, weight of 8 pounds 3 ounces. Patient's postoperative course has been uneventful. In this postoperative day #2 she is ambulating and voiding without difficulty. She is tolerating a regular diet without nausea or vomiting. She states her pain is well-controlled. She is breast-feeding without difficulty. Her lochia is minimal. She denies concerns and would like discharge home. Patient Condition at Discharge: Good Plan - Discharge Summary Discharge Rx Participant: No New Discharge Prescriptions: No Action Pnv No.95/Ferrous Fum/Folic AC [ Multivitamin Tablet] 1 tab PO DAILY Aspirin 81 mg PO DAILY Famotidine [Pepcid] 40 mg PO DAILY Discharge Medication List Pnv No.95/Ferrous Fum/Folic AC [ Multivitamin Tablet] 1 tab PO DAILY 06/24/20 [History] Aspirin 81 mg PO DAILY 06/22/23 [History] Famotidine [Pepcid] 40 mg PO DAILY 07/19/23 [History] Follow up Appointment(s)/Referral(s): Radha Cash DO [Doctor of Osteopathic Medicine] - 2 Weeks Patient Instructions/Handouts: (DC), (GEN) Activity/Diet/Wound Care/Special Instructions: No intercourse, tampons or douching. No heavy lifting greater than a gallon of milk. No driving for two weeks. Call with any fever, shakes or chills, with any pain not alleviated by over the counter meds, or with any quesions or concerns. Discharge Disposition: HOME SELF-CARE
== END 2023-07-29 10:45 | disposition home or self-care (01) | DRG 788 ==
LOC: 4FBP 09:56
PROVIDERS: ADMIT Obstetrics & Gynecology Obstetrics; ATTEND Obstetrics & Gynecology Obstetrics
PROC: 10D00Z1 Extraction of Products of Conception, Low, Open Approach (ICD-10-PCS; principal; 2023-07-27 12:00)
DX: O34.211 Maternal care for low transverse scar from previous cesarean delivery (principal); O99.62 Diseases of the digestive system complicating childbirth; F90.9 Attention-deficit hyperactivity disorder, unspecified type; O99.344 Other mental disorders complicating childbirth; O99.73 Diseases of the skin and subcutaneous tissue complicating the puerperium; L29.9 Pruritus, unspecified; K21.9 Gastro-esophageal reflux disease without esophagitis; Z79.82 Long term (current) use of aspirin; Z3A.39 39 weeks gestation of pregnancy; Z37.0 Single live birth
CPT/HCPCS: 85025; 86850; 86900; 86901

== ENCOUNTER 2024-01-27 06:23 | Day surgery (SDC) | payer BC ==
[2024-01-25 10:54] VITALS: BMI 26.6
[~2024-01-27 06:23] MED LIST: SODIUM CHLORIDE 0.9% 1,000 ML IV SCH
[2024-01-27] MEDS: SODIUM CHLORIDE 0.9% 500 ML 500 ML IV ONE (06:37)
[2024-01-27 06:59] VITALS: BP 99/59; PULSE 68; RESP 16; TEMP 98.2
--- NOTE | 2024-01-31 14:54 | P.EPPROC ---
- EP Procedure Note Electrophysiology Procedure Note: Diagnosis: Recurrent presyncope 12 EKG shows sinus rhythm normal AK narrow QRS normal ST segments normal QT interval Tilt table test per protocol Baseline blood pressure 103/66 mmHg, baseline heart rate 64 beats a minute Patient was tilted upright from angle of 70 degrees per protocol No change in heart rate or blood pressure Patient complained of exhaustion and dizziness No commensurate heart rate or blood pressure changes Impression Normal heart rate and blood pressure response to upright tilting No change in heart rate or blood pressure during symptoms
== END 2024-01-27 08:16 | disposition home or self-care (01) ==
LOC: CATHEP 06:23
PROVIDERS: ATTEND Internal Medicine Clinical Cardiac Electrophysiology
DX: R55 Syncope and collapse
CPT/HCPCS: 81025; 93660